=== PATIENT | male | born 1960 | race Caucasian/White ===

== ENCOUNTER 2023-11-19 09:52 | Outpatient (REF) | payer OTHER, SELFPAY ==
--- NOTE | ~2023-11-19 | US_ITS ---
EXAMINATION: US ABDOMEN LIMITED CLINICAL INFORMATION: Cirrhosis and question of ascites. COMPARISON: None available. TECHNIQUE: Real-time imaging of the right upper quadrant abdominal viscera. Today's examination is limited secondary to overlying bowel gas. FINDINGS: PANCREAS: The pancreas is obscured by overlying bowel gas and therefore not evaluated. LIVER: The liver is enlarged. The liver contour is normal. Heterogeneously increased echogenicity of the liver. No focal hepatic lesion. There is no intrahepatic biliary duct dilatation seen. GALLBLADDER: Normal. The gallbladder is physiologically distended without evidence of stones, sludge, polyps, wall thickening or pericholecystic fluid. COMMON BILE DUCT: Normal in caliber measuring 0.4 cm in diameter. Negative sonographic Lehman's sign. RIGHT KIDNEY: Normal. No hydronephrosis. No renal calculi or focal parenchymal lesions. The kidney measures 10.7 cm in maximum dimension. FREE FLUID: None. US/US abdomen limited IMPRESSION: Hepatomegaly with heterogeneously increased echogenicity of the liver. This is a nonspecific finding but most suggestive of hepatic steatosis. Correlation with liver enzymes recommended.
== END 2023-11-19 09:53 | disposition home or self-care (01) ==
LOC: HO.US 09:52
PROVIDERS: PCP Internal Medicine; Visit Provider Internal Medicine
DX: F10.10 Alcohol abuse, uncomplicated (principal)
CPT/HCPCS: 76705

== ENCOUNTER 2024-01-01 12:45 | Outpatient (AMB) | payer OTHER, SELFPAY ==
--- NOTE | 2024-01-01 13:03 | MHC.OFFVIS ---
Intake Visit Reasons: elevated PSA (6.56) Intake Note: New Patient presents for initial visit for Elevated PSA Urology Medications: none Blood Thinner: none Hub Inventory Specialist Required: No Accompanied by: Self / Same As Patient Allergies No Known Allergies Allergy (Verified 01/01/24 22:21) Medication List - Last Reconciled 01/01/24 by AMBER Sheffield losartan 100 mg PO DAILY metoprolol succinate ER 100 mg PO DAILY omeprazole 20 mg PO DAILY thiamine HCl (vitamin B1) 100 mg PO DAILY HPI Comments Details: Chepe is a 63-year-old male patient of Dr. Villatoro. He has a past medical history of heart murmur, hypertension, nicotine dependence, and alcohol dependency. He presents to the office today as a new patient for an elevated PSA and gross hematuria. In discussion with the patient today he reports smoking approximately 1 pack of cigarettes per day for over 40 years. He reports noting episodes of gross hematuria over the last few months. He discusses going many years without medical treatment. He reports having had a new PCP and following up with him recently at which time he had blood work ordered and performed and was noted to have an elevated PSA. In review of patient's chart it appears PSA 10/26 6.6. He reports having JORDAN with PCP and no abnormalities were noted. Discussed at length potential causes for gross hematuria as well as elevated PSA. When asked he does report urinary frequency however does not find this bothersome. He otherwise denies urinary urgency, incontinence, nocturia, dysuria, foul smelling urine, changes to urinary stream, flank pain, fever, and or chills. He is happy with his current voiding parameters. In office urinalysis results reviewed with the patient today microscopic hematuria noted. When asked he does report a family history of prostate cancer. He reports his dad was diagnosed with prostate cancer in his 80s. Discussed reasons for blood in the urine may include but are not limited to kidney stones, cancer in the urinary tract, BPH, kidney stone disease or inflammatory conditions of the urinary tract. Discussed workup to include cystoscopy evaluation. He otherwise offers no other issues or concerns at this time. [facility] Medical History (Updated 01/01/24 @ 22:33 by AMBER Sheffield) Heart murmur High blood pressure Social History (Updated 01/01/24 @ 13:20 by Sky Prieto) Patient Tobacco Use Status: Current everyday Tobacco user Review of Systems Const All systems reviewed & are unremarkable except as noted in HPI and below Physical Exam Const General: cooperative, comfortable, no acute distress, well developed, alert and awake Orientation/consciousness: patient oriented x3 Limitations: no limitations HEENT Head: Yes normal to inspection, Yes normocephalic and Yes atraumatic Ears: hearing grossly normal bilaterally Eyes General: appearance normal, both eyes and all related structures Neck Neck: Yes normal visual inspection and Yes trachea midline Chest Chest palpation & inspection: normal inspection of the chest Resp Effort & Inspection: normal respiratory effort and able to speak in complete sentences Cardio Rate: regular rate GI Inspection: Yes normal to inspection General: Yes no CVA tenderness Back/Spine/Pelvis Back: no CVA tenderness Skin General skin exam: no rashes or lesions noted Neuro General: patient oriented x3 Extrem General: Yes normal to inspection Psych Appearance: grossly normal and well kempt Mental Status: mental status grossly normal Speech and movement: Normal speech and movement present and Clear speech present Affect: normal affect Attitude: cooperative Thought process: Normal thought process present Thought content: Normal thought content present Insight: Fair insight present (Psych) Judgement: Fair judgement present (Psych) Results AMB Urinalysis, Automated UA Leukoctes 0 Radha/uL Last Edit by RCT Logic on 01/01/24 13:22 UA Nitrite Negative Last Edit by RCT Logic on 01/01/24 13:22 UA Urobilinogen 0.2 mg/dL Last Edit by RCT Logic on 01/01/24 13:22 UA Protein 0 mg/dL Last Edit by [employer] on 01/01/24 13:22 UA pH 6.0 Last Edit by [employer] Logic on 01/01/24 13:22 UA Blood 25 Rito/uL Last Edit by RCT Logic on 01/01/24 13:22 UA Specific [place] 1.010 Last Edit by RCT Logic on 01/01/24 13:22 UA Ketone Negative Last Edit by [employer] Logic on 01/01/24 13:22 UA Bilirubin 0 mg/dL Last Edit by RCT [employer] on 01/01/24 13:22 UA Glucose 0 mg/dL Last Edit by [employer] on 01/01/24 13:22 Results Reviewed Results Reviewed: Laboratory Last Values Urine pH (Auto) 6.0 01/01/24 13:21 Specific [place] (Auto) 1.010 01/01/24 13:21 Urine Protein (Auto) 0 mg/dL 01/01/24 13:21 Glucose (UA)(Auto) 0 mg/dL 01/01/24 13:21 Urine Ketones (Auto) Negative 01/01/24 13:21 Urine Blood (Auto) 25 Rito/uL 01/01/24 13:21 Urine Nitrite (Auto) Negative 01/01/24 13:21 Urine Bilirubin (Auto) 0 mg/dL 01/01/24 13:21 Urine Urobilinogen (Auto) 0.2 mg/dL 01/01/24 13:21 Leukocyte Esterase (Auto) 0 Radha/uL 01/01/24 13:21 Assessment & Plan Assessment & Plan (1) Gross hematuria: Code(s): R31.0 - Gross hematuria Category: Medical (2) Elevated PSA: Code(s): R97.20 - Elevated prostate specific antigen [PSA] Category: Medical (3) Nicotine dependence: Code(s): F17.200 - Nicotine dependence, unspecified, uncomplicated Category: Medical Plan In office urinalysis results reviewed with the patient today; as noted above; will send for urine cytology. Discussed at length potential causes of gross hematuria as well as elevated PSA. Discussed, educated, and stressed the importance of limiting/quitting nicotine dependence for overall health and well-being Discussed obtaining CT urogram for further assessment evaluation. BUN and creatinine ordered for imaging Discussed redraw of PSA with no sex the night before, no caffeine morning of, and no heavy lifting 1-2 days prior. Discussed potential for near future prostate biopsy and or MRI of the prostate. Patient currently denies any bothersome urinary issues or concerns. He reports be happy with current voiding parameters. Follow-up in office cystoscopy with imaging and labs to be completed prior; or sooner with any issues, concerns, and or questions. Orders: Orders CT urogram Today R31.0 - Gross hematuria PSA,Total (Free>4and<10) Today R97.20 - Elevated prostate specific antigen [PSA] AMB Urinalysis Automated Today Z13.9 - Encounter for screening, unspecified Urine Cytology Today Z13.9 - Encounter for screening, unspecified Blood Urea Nitrogen Today R31.0 - Gross hematuria Creatinine Today R31.0 - Gross hematuria Patient Instructions: The patient had an opportunity to ask questions regarding the treatment plan. All questions were answered. Physical exam, labs, and imaging were discussed and reviewed in detail. As well as risks, benefits, and discussion of treatment choices. No major barriers to understanding were identified. The patient expressed understanding and agreement with the above treatment plan. The patient was made aware they should contact our office by phone for worsening of their current condition, the appearance of new symptoms, or with any questions or concerns. Compliance is encouraged with any medications and follow up testing that is ordered. It is a privilege to be allowed the opportunity to participate in? your urological care.? Again, if you have any questions or concerns If you have any questions or concerns please do not hesitate to contact me. The office is [phone]. This note is constructed using voice recognition software. While every effort has been made to ensure accuracy shopper marketing manager errors may have been included. Yours sincerely, AMBER Sheffield Coding Level of Care Code New Pt Level 4 (35554) Diagnoses Gross hematuria R31.0 Elevated PSA R97.20 Nicotine dependence F17.200 Time Spent (min) 35
== END 2024-01-01 13:53 | disposition home or self-care (01) ==
PROVIDERS: PCP Internal Medicine; Visit Provider Nurse Practitioner Family
DX: R31.0 Gross hematuria (principal); R97.20 Elevated prostate specific antigen [PSA]; F17.200 Nicotine dependence, unspecified, uncomplicated
CPT/HCPCS: 99204

== ENCOUNTER 2024-01-01 12:45 | Outpatient (REF) | payer OTHER, SELFPAY ==
[2024-01-01 16:27] LABS: Urine Cytology See Pathology rpt
== END 2024-01-01 12:46 | disposition home or self-care (01) ==
LOC: HO.LNP 12:45
PROVIDERS: PCP Internal Medicine; Visit Provider Nurse Practitioner Family
DX: R31.0 Gross hematuria (principal); R97.20 Elevated prostate specific antigen [PSA]; F17.200 Nicotine dependence, unspecified, uncomplicated
CPT/HCPCS: 81003; 88112; 99202

== ENCOUNTER 2024-02-11 13:19 | Outpatient (AMB) | payer OTHER, SELFPAY ==
--- NOTE | 2024-02-11 14:10 | A.OFFVIS_ITS ---
Intake Visit Reasons: cysto/labs(PSA 7.23) Intake Note: Patient is Present for Cystoscopy Urology Med: none Antibiotic Allergy:None Blood Thinner:None URO- G Disposable Cystoscope lot: [id number] exp: 10/03/2026 Allergies No Known Allergies Allergy (Verified 03/30/24 14:24) HPI Comments Details: Chepe is a pleasant male. He is a patient of Dr. Li. He has seen for the following urologic conditions - gross hematuria Here for cystoscopy Normal Discussed elevated PSA Does have urinary urgency Offered medication Currently he is completing alcohol addiction program and would rather avoid medi cations Six-month follow-up PSA Episode of gross hematuria Smoking history 40 year pack per day PSA 10/26 6.6, 01/23 7.3 Family history prostate cancer father late 80 Imaging - abdominal ultrasound hepatic steatosis PFSH Medical History Heart murmur High blood pressure Social History Patient Tobacco Use Status: Current everyday Tobacco user Review of Systems Const Denies chills and Denies fever(s) Card Reports no additional complaints and Denies syncope Resp Denies cough GI Denies abdominal pain and Denies heartburn Reports as per HPI and Denies change in libido Neuro Denies syncope Psych Denies change in libido Endo Denies change in libido Physical Exam Const General: cooperative, healthy appearing, comfortable and no acute distress Orientation/consciousness: patient oriented x3 HEENT Face and sinus: Yes normal facial exam Mouth: moist mucous membranes Neck Neck: Yes normal visual inspection, Yes full ROM and Yes trachea midline Chest Chest palpation & inspection: normal inspection of the chest Resp Effort & Inspection: normal respiratory effort, able to speak in complete sentences and no respiratory distress GI Inspection: Yes normal to inspection Back/Spine/Pelvis Cervical Spine: normal cervical lordosis Thoracic/Lumbar Spine: thoracic and lumbar spine normal to inspection Skin General skin exam: no rashes or lesions noted Neuro General: patient oriented x3, gait normal, tone normal and moves all extremities Extrem General: Yes normal to inspection and Yes capillary refill normal Office Procedures Cystoscopy Consent Discussed risk and benefit or proposed procedure with the patient. Information consent for procedure given to the patient. Discussed technical aspects, risks, benefits and alternatives in full. Addressed all of the patient's questions and concerns regarding the procedure. The patient demonstrated knowledge and understanding. They wish to proceed with this procedure. Preparation The patient was prepped in the usual manner. A rn urgent care was present and in the room. Genitalia was prepped with betadine solution in a sterile manner. Lidocaine Jelly 2% was placed into the urethra and 16Fr flexible Olympus cystoscope was inserted into the meatus after adequate lubrication. Procedure Cystoscopy performed using a disposable Urovue digital 16 Hebrew cystoscope. Meatus circumcised Urethra anterior and posterior urethra normal Prostatic Urethra open Bladder examination with retroflexion of cystoscope Bladder Orifices normal shape and position Bladder Capacity small medium large Trabeculations median Cellule Formation - Diverticulum Formation - Mucosal Erythema - Bladder Tumor - [id number] DISPOSABLE SCOPE URO-G FLEXIBLE SCOPE Procedure code (CPT) selection complete Office Meds lidocaine HCl 2 % mucosal jelly in applicator Performing Provider: Sang Antunez MD [place] [facility] [facility] [place] [facility] Administered by: Sang Antunez MD on 05/10/24 20:46 Dose Route Admin Location Dispensed Lot Number Expiration Date ND Metal Drill Operator 10 mL intra-urethral 10 mL nitrofurantoin monohydrate/macrocrystals 100 mg capsule Performing Provider: Sang Antunez MD Performing [place] [facility] [facility] Administered by: Sang Antunez MD on 05/10/24 20:46 Dose Route Admin Location Dispensed Lot Number Expiration Date NDC Metal Drill Operator 100 mg PO 1 cap naproxen 500 mg tablet Performing Provider: Sang Antunez MD Performing [place] [facility] [place] [facility] Documented (not given) by: Sang Antunez MD on 05/10/24 20:46 Dose Route Admin Location Dispensed Lot Number Expiration Date NDC Metal Drill Operator 500 mg PO tab Results AMB Urinalysis, Automated 2 UA Leukoctes 0 Radha/uL Last Edit by JACOBO Uribe on 02/11/24 14:24 UA Nitrite Negative Last Edit by JACOBO Uribe on 02/11/24 14:24 UA Urobilinogen 0.2 mg/dL Last Edit by JACOBO Uribe on 02/11/24 14:2 4 UA Protein 15 mg/dL Last Edit by JACOBO Uribe on 02/11/24 14:24 UA pH 6.5 Last Edit by JACOBO Uribe on 02/11/24 14:24 UA Blood 10 Rito/uL Last Edit by JACOBO Uribe on 02/11/24 14:24 UA Specific [place] 1.015 Last Edit by Carmenza Powell RMA on 02/11/24 14: 24 UA Ketone Negative Last Edit by YESICA UribeA on 02/11/24 14:24 UA Bilirubin 0 mg/dL Last Edit by YESICA UribeA on 02/11/24 14:24 UA Glucose 0 mg/dL Last Edit by YESICA UribeA on 02/11/24 14:24 Results Reviewed Results Reviewed: Laboratory Last Values Urine pH (Auto) 6.5 02/11/24 14:12 Specific [place] (Auto) 1.015 02/11/24 14:12 Urine Protein (Auto) 15 mg/dL 02/11/24 14:12 Glucose (UA)(Auto) 0 mg/dL 02/11/24 14:12 Urine Ketones (Auto) Negative 02/11/24 14:12 Urine Blood (Auto) 10 Rito/uL 02/11/24 14:12 Urine Nitrite (Auto) Negative 02/11/24 14:12 Urine Bilirubin (Auto) 0 mg/dL 02/11/24 14:12 Urine Urobilinogen (Auto) 0.2 mg/dL 02/11/24 14:12 Leukocyte Esterase (Auto) 0 Radha/uL 02/11/24 14:12 Assessment & Plan Assessment & Plan (1) Nephrolithiasis: Code(s): N20.0 - Calculus of kidney Category: Medical Plan 6m f/u Orders: Orders AMB Cystoscopy 02/11/24 R31.0 - Gross hematuria AMB Urinalysis Automated 02/11/24 Z13.9 - Encounter for screening, unspecified Prostate Specific Antigen 6 Months R97.20 - Elevated prostate specific antigen [PSA] Medications: New lidocaine HCl 2% 10 mL intra-urethral ONCE 10 mL 0RF R31.0 - Gross hematuria nitrofurantoin monohyd/m-cryst 100 mg 100 mg PO ONCE 1 cap 0RF R31.0 - Gross hematuria naproxen 500 mg PO ONCE 1 tab 0RF R31.0 - Gross hematuria Patient Instructions: Imaging studies, laboratory and physical exam results were discussed and reviewed in detail. No major barriers to patient understanding were identified. An opportunity to ask questions regarding the treatment plan was provided. All questions were answered. The patient expressed understanding and agreement with the above treatment plan. The patient is aware they should contact our office by phone for worsening of their current condition or the appearance of new urologic symptoms. Compliance i s encouraged with any medications and followup testing that is ordered. It is a privilege to participate in the urologic care of your patient. If you have any questions or concerns regarding treatment for the above conditions, or other urologic issues, please do not hesitate to contact me. The office telephone contact is [phone]. This note is constructed using voice recognition software. While every effort has been made to ensure accuracy floral arranger errors may have been included. Yours sincerely, Dr Sang Antunez MD, [facility] - Urology Providers of Expert, Compassionate Care for the Genitourinary System Coding Level of Care Code Est Pt Level 3 (70545) Diagnoses Nephrolithiasis N20.0 CPT Codes Cystoscopy - CPT: [id number] ([id number])
== END 2024-02-11 15:01 | disposition home or self-care (01) ==
PROVIDERS: PCP Internal Medicine; Visit Provider Urology
DX: R31.0 Gross hematuria (principal); N20.0 Calculus of kidney
CPT/HCPCS: 52000; 99213

== ENCOUNTER → 2024-02-11 13:19 | Outpatient (BNVA) | payer OTHER, SELFPAY | PROVIDERS: PCP Internal Medicine; Visit Provider Urology | DX: R31.0 Gross hematuria (principal) | CPT/HCPCS: 52000; 81003; 99212 ==

== ENCOUNTER 2024-03-18 15:09 | Outpatient (REF) | payer OTHER, SELFPAY ==
--- NOTE | ~2024-03-18 | CT_ITS ---
EXAMINATION: CT ABDOMEN AND PELVIS WITHOUT AND WITH CONTRAST CLINICAL INFORMATION: Gross hematuria. COMPARISON: Right upper quadrant ultrasound 11/19/2023 TECHNIQUE: Noncontrast CT of the abdomen and pelvis is performed followed by split bolus contrast-enhanced images using 85 mL Omnipaque 350 contrast.? Postcontrast imaging is performed during the combined nephrogram and excretion phase. Sagittal and coronal reformatted images were obtained on the technologist's workstation for both the precontrast and postcontrast phases. This CT examination was performed using dose optimization techniques as appropriate, variously including the following: *Automated exposure control *Adjustment of mA and/or kV according to patient size (this includes techniques or standardized protocols for targeted exams where dose is matched to indication/reason for exam; i.e. extremities or head) *Use of iterative reconstruction technique DLP: 1125 mGy-cm FINDINGS: LUNG BASES: No pleural or pericardial effusion. LIVER, GALLBLADDER, AND BILIARY TREE: The liver is enlarged and decreased in attenuation. No focal hepatic lesion or biliary ductal dilatation is present. The gallbladder is unremarkable with no evidence of radiopaque gallstones, gallbladder wall thickening, or obvious pericholecystic inflammatory changes. PANCREAS: Possible pancreatic parenchymal calcifications. No ductal dilatation. SPLEEN: Not enlarged. ADRENAL GLANDS: Right adrenal nodule measures 1.9 x 1.4 cm. Left adrenal nodule measures 1.8 x 1.6 cm. KIDNEYS AND URETERS: The kidneys are symmetric in size and enhancement. 7 mm cluster of nonobstructing calculi lower pole right kidney. Few nonobstructing calculi lower pole left kidney with the largest measuring 6 mm. 4 mm nonobstructing calculus upper pole left kidney. Nonspecific perinephric stranding. No ureteral calculus. Bilateral collecting systems and opacified portions of the ureters are nondilated and without obvious filling defects. BLADDER: Underdistended Partially fills with excreted contrast. No intraluminal filling defects. No bladder calculus. GASTROINTESTINAL TRACT: Small and large bowel loops are of normal caliber. Extensive diverticular disease of the sigmoid colon. No small bowel obstruction. Appendix is within normal limits. ABDOMINAL WALL: Bilateral fat-containing inguinal hernias. LYMPH NODES: No bulky lymphadenopathy. VASCULAR: Normal caliber abdominal aorta. Retroaortic left renal vein. PELVIC VISCERA: Mild enlargement of the prostate gland. OSSEUS STRUCTURES: No destructive bone lesions. CT/CT urogram IMPRESSION: Bilateral nonobstructing renal calculi. No hydronephrosis. Bilateral adrenal nodules. Recommend 1-year followup adrenal protocol CT. Also, if clinically indicated, consider concurrent laboratory evaluation for possible pheochromocytoma. Hepatic steatosis. Sigmoid diverticulosis.
[2024-03-18] MEDS: iohexoL 350 MG/ML 75 ML INFUS..BTL 85 ML IV (16:37)
== END 2024-03-18 15:10 | disposition home or self-care (01) ==
LOC: HO.CT 15:09
PROVIDERS: PCP Internal Medicine; Visit Provider Nurse Practitioner Family
DX: R31.0 Gross hematuria (principal)
CPT/HCPCS: 74178; Q9967

== ENCOUNTER 2024-03-30 13:04 | Outpatient (AMB) | payer OTHER, SELFPAY ==
--- NOTE | 2024-03-30 13:32 | MHC.OFFVIS ---
Intake Visit Reasons: CT results Intake Note: Patient presents today for follow up visit on: Elevated PSA , CT Scan and PSA results CT scan completed: 03/18/24 PSA: 4 Urology Medications: none Blood Thinner: none Dean Of Education Required: No Accompanied by: Self / Same As Patient Allergies No Known Allergies Allergy (Verified 03/30/24 14:24) Medication List - Last Reconciled 03/30/24 by ADIS Sheffield-ROBERTO losartan 100 mg PO DAILY metoprolol succinate ER 100 mg PO DAILY omeprazole 20 mg PO DAILY thiamine HCl (vitamin B1) 100 mg PO DAILY HPI Comments Details: Chepe is a 63-year-old male patient of Dr. Villatoro. He has a past medical history of heart murmur, hypertension, nicotine dependence, and alcohol dependency. He presents to the office today as a new patient for an elevated PSA and gross hematuria. In discussion with the patient today he reports to be doing and feeling well. He denies any episodes of hematuria since his last office visit here approximately 1 month ago. Of note, patient underwent an office cystoscopy with Dr. Antunez during last office visit at which noted no abnormal findings. He continues to work on his alcohol dependence. He reports continuing is alcohol addiction program. Recent CT results reviewed with the patient today. Bilateral kidneys with nonobstructing renal calculi. The bladder is underdistended partially fills with excreted contrast. No intraluminal filling defects. No bladder calculus noted. He does continue to report a 1 pack per day smoking history of over 40 years. Recent PSA results reviewed with the patient today. PSAs are as follows: 10/26 6.6, 01/23 7.2, 03/25 4.0 Discussed at length potential causes for gross hematuria as well as elevated PSA. When asked he does report urinary frequency however does not find this bothersome. He otherwise denies urinary urgency, incontinence, nocturia, dysuria, foul smelling urine, changes to urinary stream, flank pain, fever, and or chills. He is happy with his current voiding parameters. When asked he does report a family history of prostate cancer. He reports his dad was diagnosed with prostate cancer in his 80s. Urine cytology 01/23 Negative for high-grade urothelial carcinoma. He otherwise offers no other issues or concerns at this time. [facility] Medical History Heart murmur High blood pressure Social History Patient Tobacco Use Status: Current everyday Tobacco user Review of Systems Const All systems reviewed & are unremarkable except as noted in HPI and below Physical Exam Const General: cooperative, comfortable, no acute distress, well developed, alert and awake Nutritional Appearance: overweight Orientation/consciousness: patient oriented x3 Limitations: no limitations HEENT Head: Yes normal to inspection, Yes normocephalic and Yes atraumatic Ears: hearing grossly normal bilaterally Eyes General: appearance normal, both eyes and all related structures Neck Neck: Yes normal visual inspection and Yes trachea midline Chest Chest palpation & inspection: normal inspection of the chest Resp Effort & Inspection: normal respiratory effort and able to speak in complete sentences Cardio Rate: regular rate GI Inspection: Yes normal to inspection General: Yes no CVA tenderness Back/Spine/Pelvis Back: no CVA tenderness Skin General skin exam: no rashes or lesions noted Neuro General: patient oriented x3 Extrem General: Yes normal to inspection Psych Appearance: grossly normal and well kempt Mental Status: mental status grossly normal Speech and movement: Normal speech and movement present and Clear speech present Affect: normal affect Attitude: cooperative Thought process: Normal thought process present Thought content: Normal thought content present Insight: Fair insight present (Psych) Judgement: Fair judgement present (Psych) Results Reviewed Results Reviewed: Procedure(s): CT urogram EXAMINATION: CT ABDOMEN AND PELVIS WITHOUT AND WITH CONTRAST FINDINGS: LUNG BASES: No pleural or pericardial effusion. LIVER, GALLBLADDER, AND BILIARY TREE: The liver is enlarged and decreased in attenuation. No focal hepatic lesion or biliary ductal dilatation is present. The gallbladder is unremarkable with no evidence of radiopaque gallstones, gallbladder wall thickening, or obvious pericholecystic inflammatory changes. PANCREAS: Possible pancreatic parenchymal calcifications. No ductal dilatation. SPLEEN: Not enlarged. ADRENAL GLANDS: Right adrenal nodule measures 1.9 x 1.4 cm. Left adrenal nodule measures 1.8 x 1.6 cm. KIDNEYS AND URETERS: The kidneys are symmetric in size and enhancement. 7 mm cluster of nonobstructing calculi lower pole right kidney. Few nonobstructing calculi lower pole left kidney with the largest measuring 6 mm. 4 mm nonobstructing calculus upper pole left kidney. Nonspecific perinephric stranding. No ureteral calculus. Bilateral collecting systems and opacified portions of the ureters are nondilated and without obvious filling defects. BLADDER: Underdistended Partially fills with excreted contrast. No intraluminal filling defects. No bladder calculus. GASTROINTESTINAL TRACT: Small and large bowel loops are of normal caliber. Extensive diverticular disease of the sigmoid colon. No small bowel obstruction. Appendix is within normal limits. ABDOMINAL WALL: Bilateral fat-containing inguinal hernias. LYMPH NODES: No bulky lymphadenopathy. VASCULAR: Normal caliber abdominal aorta. Retroaortic left renal vein. PELVIC VISCERA: Mild enlargement of the prostate gland. OSSEUS STRUCTURES: No destructive bone lesions. CT/CT urogram IMPRESSION: Bilateral nonobstructing renal calculi. No hydronephrosis. Bilateral adrenal nodules. Recommend 1-year followup adrenal protocol CT. Also, if clinically indicated, consider concurrent laboratory evaluation for possible pheochromocytoma. Hepatic steatosis. Sigmoid diverticulosis. Assessment & Plan Assessment & Plan (1) Gross hematuria: Code(s): R31.0 - Gross hematuria Category: Medical (2) Nephrolithiasis: Code(s): N20.0 - Calculus of kidney Category: Medical (3) Nicotine dependence: Code(s): F17.200 - Nicotine dependence, unspecified, uncomplicated Category: Medical (4) Elevated PSA: Code(s): R97.20 - Elevated prostate specific antigen [PSA] Category: Medical Plan Unable to obtain urine for urinalysis as patient unable to void. Recent CT results reviewed with the patient today; as noted above. Discussed surgical intervention versus surveillance monitoring of nephrolithiasis; risks and benefits of these interventions were discussed. Recent PSA results reviewed with the patient today as noted above; trending down Patient currently denies any bothersome urinary issues or concerns He is happy with his current voiding parameters. Discussed at length potential causes of gross hematuria patient had been experiencing, elevated PSA, and nephrolithiasis. Discussed, educated, and stressed the importance of adequate hydration in relation to nephrolithiasis as well as overall health and well-being. Discussed adding 1 oz of lemon juice to water daily. Will obtain retroperitoneal ultrasound in 4 months. Continue follow-up with [facility] as planned Discussed, educated, and stressed the importance of limiting alcohol dependence as well as nicotine dependence. Will obtain redraw of PSA in 4 months. Follow-up in 4 months with imaging and labs to be completed prior; or sooner with any issues, concerns, and or questions. Orders: Orders PSA,Total (Free>4and<10) 4 Months R97.20 - Elevated prostate specific antigen [PSA] US retroperitoneal comp 4 Months N20.0 - Calculus of kidney, R31.0 - Gross hematuria Patient Instructions: The patient had an opportunity to ask questions regarding the treatment plan. All questions were answered. Physical exam, labs, and imaging were discussed and reviewed in detail. As well as risks, benefits, and discussion of treatment choices. No major barriers to understanding were identified. The patient expressed understanding and agreement with the above treatment plan. The patient was made aware they should contact our office by phone for worsening of their current condition, the appearance of new symptoms, or with any questions or concerns. Compliance is encouraged with any medications and follow up testing that is ordered. It is a privilege to be allowed the opportunity to participate in? your urological care.? Again, if you have any questions or concerns If you have any questions or concerns please do not hesitate to contact me. The office is [phone]. This note is constructed using voice recognition software. While every effort has been made to ensure accuracy metal mold dresser errors may have been included. Yours sincerely, AMBER Sheffield Coding Level of Care Code Est Pt Level 3 (00007) Complex EM visit Add On G2211 Diagnoses Gross hematuria R31.0 Nephrolithiasis N20.0 Nicotine dependence F17.200 Elevated PSA R97.20
== END 2024-03-30 14:16 | disposition home or self-care (01) ==
PROVIDERS: PCP Internal Medicine; Visit Provider Nurse Practitioner Family
DX: R31.0 Gross hematuria (principal); N20.0 Calculus of kidney; F17.200 Nicotine dependence, unspecified, uncomplicated; R97.20 Elevated prostate specific antigen [PSA]
CPT/HCPCS: 99213; G2211

== ENCOUNTER → 2024-03-30 13:04 | Outpatient (BNVA) | payer OTHER, SELFPAY | PROVIDERS: PCP Internal Medicine; Visit Provider Nurse Practitioner Family | DX: R97.20 Elevated prostate specific antigen [PSA] (principal); R31.0 Gross hematuria; N20.0 Calculus of kidney; I10 Essential (primary) hypertension; F17.200 Nicotine dependence, unspecified, uncomplicated | CPT/HCPCS: 99212 ==

== ENCOUNTER 2024-07-21 14:14 | Outpatient (REF) | payer OTHER, SELFPAY ==
--- NOTE | ~2024-07-21 | US_ITS ---
EXAMINATION: US RETROPERITONEAL COMPLETE (RENAL) CLINICAL INFORMATION: Gross hematuria. COMPARISON: CT urogram 03/18/2024, ultrasound abdomen 11/19/2023 TECHNIQUE: Real-time imaging of the kidneys and bladder. FINDINGS: RIGHT KIDNEY: 10.9 x 5.4 x 5.5 cm (SAG x AP x TRV). The kidney is normal in size, contour, and echogenicity. Renal cortical thickness is normal. No calculi or focal parenchymal lesions. No hydronephrosis. LEFT KIDNEY: 11.9 x 6.3 x 5.0 cm (SAG x AP x TRV). The kidney is normal in size, contour, and echogenicity. Renal cortical thickness is normal. No focal parenchymal lesions. In the upper pole of the left kidney, there is a echogenic focus measuring 6 mm in size. This does not shadow and does not have twinkle artifact. Although this Does not have typical characteristics of a stone, on the prior CT scan, a stone was present in the exact same location. No hydronephrosis. BLADDER: Well distended and normal. Bilateral ureteral jets are demonstrated. Prevoid bladder volume is 405 mL. Postvoid bladder volume is 51 mL. Prostate: Prostate upper limits of normal at 29 mL. US/US retroperitoneal comp IMPRESSION: 6 mm echogenic focus upper pole left kidney consistent with a nonobstructing calculus as seen on the prior CT. Borderline prostate with 51 mL PVR Electronically signed by: Brijesh Gr MD 07/21/2024 10:[address] [facility]
== END 2024-07-21 14:15 | disposition home or self-care (01) ==
LOC: HO.US 14:14
PROVIDERS: PCP Internal Medicine; Visit Provider Nurse Practitioner Family
DX: R31.0 Gross hematuria (principal); N20.0 Calculus of kidney
CPT/HCPCS: 76770

== ENCOUNTER 2024-08-17 14:26 | Outpatient (AMB) | payer OTHER, SELFPAY ==
--- NOTE | 2024-08-17 14:25 | A.OFFVIS_ITS ---
Intake Visit Reasons: 6M/PSA Intake Note: Patient presents today for tele visit follow up on: Elevated PSA , ultrasound and PSA results Imaging completed: 07/21/24 PSA: 4.2 Urology Medications: Vitamin B6 Blood Thinner: none Nutrition Helper Required: No Nutrition Helper Services: Nutrition Helper Offered & Declined Accompanied by: Self / Same As Patient Allergies No Known Allergies Allergy (Verified 08/17/24 15:09) Medication List - Last Reconciled 08/17/24 by AMBER Sheffield atorvastatin 20 mg PO DAILY hydroxyzine HCl 25 mg PO BEDTIME losartan 100 mg PO DAILY metoprolol succinate ER 100 mg PO DAILY omeprazole 20 mg PO DAILY pyridoxine (vitamin B6) 100 mg PO DAILY 90 days thiamine HCl (vitamin B1) 100 mg PO DAILY HPI Comments Details: Chepe is a 63-year-old male patient of Dr. Villatoro. He has a past medical history of heart murmur, hypertension, nicotine dependence, and alcohol dependency. He is being followed up on today via video telehealth for his elevated PSA and gross hematuria. In discussion with the patient today he reports to be struggling with his alcohol dependence. He reports following up with [facility] rehab however the program is only 7 days long and feels he needs something longer. Call to PCP office as well as [facility] as patient is looking to undergo further treatment options. In regards to patient's urological health we discussed recent retroperitoneal ultrasound results 07/26 bilateral kidneys are normal in size, contour, and echogenicity. Right kidney with no lesions, calculi, and or hydronephrosis. Left kidney with 6 mm echogenic focus consistent with nonobstructing calculus seen on prior CT. The bladder is well distended and normal. Bladder ureteral jets are demonstrated. Pre void bladder volume is a proximally 400 mL. Postvoid bladder volume is 50 mL. The prostate measures a proximally 30 mL. Recent PSA results reviewed with the patient today as noted and trended below... 10/26 6.6, 524 7.2, 03/25 4.0, 07/26 4.2 Patient with a previous history of gross hematuria and has underwent further workup with CT urogram 03/25 that noted bilateral kidneys with nonobstructing renal calculi. The bladder is underdistended partially fills with excreted contrast. No intraluminal filling defects. No bladder calculus noted. He also underwent in office cystoscopy with Dr. Antunez 02/23 which noted no abnormal findings. He continues to work on his alcohol dependence. He does continue to report a one pack per day smoking history of over 40 years. He denies any further episodes of gross hematuria and or bothersome urinary issues or concerns. He denies urinary urgency, incontinence, nocturia, dysuria, foul smelling urine, changes to urinary stream, flank pain, fever, and or chills. He is happy with his current voiding parameters. When asked he does report a family history of prostate cancer. He reports his dad was diagnosed with prostate cancer in his 80s. Urine cytology 01/23 Negative for high-grade urothelial carcinoma. He otherwise offers no other issues or concerns at this time. [facility] Medical History Heart murmur High blood pressure Social History Patient Tobacco Use Status: Current everyday Tobacco user Review of Systems Const All systems reviewed & are unremarkable except as noted in HPI and below Physical Exam Const General: cooperative, healthy appearing, comfortable, no acute distress, well developed, alert and awake Orientation/consciousness: oriented to person Resp Effort & Inspection: normal respiratory effort and able to speak in complete sentences Neuro General: oriented to person Psych Appearance: well kempt Mental Status: mental status grossly normal Speech and movement: Clear speech present Affect: normal affect Attitude: cooperative Thought content: Normal thought content present Insight: Fair insight present (Psych) Judgement: Fair judgement present (Psych) Telehealth Telehealth Telehealth Platform: [facility] Location of provider rendering services: practice address Location of patient: address on file Patient Identification confirmed using: Name, : Yes Telehealth method: video Patient verbally consented to treatment: Yes Patient verbally consented to billing insurance company: Yes Patient informed of any privacy concerns related to visit: Yes Minutes spent on Phone/Video with Pt.: 35 Results Reviewed Results Reviewed: Date of Service: 07/21/24 EXAMINATION: US RETROPERITONEAL COMPLETE (RENAL) FINDINGS: RIGHT KIDNEY: 10.9 x 5.4 x 5.5 cm (SAG x AP x TRV). The kidney is normal in size, contour, and echogenicity. Renal cortical thickness is normal. No calculi or focal parenchymal lesions. No hydronephrosis. LEFT KIDNEY: 11.9 x 6.3 x 5.0 cm (SAG x AP x TRV). The kidney is normal in size, contour, and echogenicity. Renal cortical thickness is normal. No focal parenchymal lesions. In the upper pole of the left kidney, there is a echogenic focus measuring 6 mm in size. This does not shadow and does not have twinkle artifact. Although this Does not have typical characteristics of a stone, on the prior CT scan, a stone was present in the exact same location. No hydronephrosis. BLADDER: Well distended and normal. Bilateral ureteral jets are demonstrated. Prevoid bladder volume is 405 mL. Postvoid bladder volume is 51 mL. Prostate: Prostate upper limits of normal at 29 mL. IMPRESSION: 6 mm echogenic focus upper pole left kidney consistent with a nonobstructing calculus as seen on the prior CT. Borderline prostate with 51 mL PVR Assessment & Plan Assessment & Plan (1) Elevated PSA: Code(s): R97.20 - Elevated prostate specific antigen [PSA] Category: Medical (2) Nephrolithiasis: Code(s): N20.0 - Calculus of kidney Category: Medical Plan Recent PSA results reviewed with the patient today; as noted above. Recent retroperitoneal ultrasound results reviewed with the patient today; as noted above. Call to PCP as well as [facility] to further assess further treatment options regarding alcohol dependence. Patient currently denies any bothersome urinary issues. Reports be happy with current voiding parameters. We discussed at length potential causes of elevated PSA as well as further treatment options and risks and benefits of these treatment options. Will continue with close surveillance monitoring. Will obtain PSA in 4 months. Continue vitamin B6 as discussed and prescribed; refill provided. Follow-up in 4 months with PSA to be completed prior; or sooner with any issues, concerns, and or questions. Orders: Orders Prostate Specific Antigen 4 Months R97.20 - Elevated prostate specific antigen [PSA] Medications: Refilled pyridoxine (vitamin B6) 100 mg PO DAILY 90 tabs 3RF 90 days Patient Instructions: The patient had an opportunity to ask questions regarding the treatment plan. All questions were answered. Physical exam, labs, and imaging were discussed and reviewed in detail. As well as risks, benefits, and discussion of treatment choices. No major barriers to understanding were identified. The patient expressed understanding and agreement with the above treatment plan. The patient was made aware they should contact our office by phone for worsening of their current condition, the appearance of new symptoms, or with any questions or concerns. Compliance is encouraged with any medications and follow up testing that is ordered. It is a privilege to be allowed the opportunity to participate in? your urological care.? Again, if you have any questions or concerns If you have any questions or concerns please do not hesitate to contact me. The office is [phone]. This note is constructed using voice recognition software. While every effort has been made to ensure accuracy combination presser errors may have been included. Yours sincerely, AMBER Sheffield Coding Level of Care Code Tele Est Pt Level 4 (57090) Diagnoses Elevated PSA R97.20 Nephrolithiasis N20.0 Time Spent (min) 35
--- OUTSIDE RECORDS SUMMARY | 2024-08-17 14:28 | XMS_ITS | Encounter Summary ---
Author Name [facility] [place] [facility] [place] Address [address] [place] [id number] Support Name Relationship Address Phone DANUTA CASTELAN Emergency Contact Unknown Selected Encounter This section includes the information on record at [place] for the Encounter. Date/Time Encounter Type Encounter Description Reason Provider Source Aug 20, 2023 01:41 PM COMMUNITY/WORK REINTEGRATION HOMELESS [place] COM EMP SVC INDIV ICD-10-CM Z56.0 Unemployment, unspecified CANDAGE,[facility] Encounter Template Text not used by [place] Assessments - Encounter Diagnoses This section includes the primary and secondary diagnoses documented for the Encounter. Date/Time Primary/Secondary Diagnosis Diagnosis Name Provider Source Aug 20, 2023 01:44 PM PRIMARY Unemployment, unspecified CANDAGE,GI [facility] Social History: Smoking Status (Most current) and Tobacco Use (All prior to encounter date) This section includes the most current, and the historical, smoking and tobacco- related health factors from the [place] facility where the Encounter took place. Current Smoking Status This section includes the most current smoking, or tobacco-related health factor, from the [place] facility where the Encounter took place. Date/Time Current Smoking Status Comment Yadira ity Oct 06, 2020 11:45 AM VA-TOBACCO USER EVERY DAY [facility] Tobacco Use History This section includes a history of the smoking, or tobacco-related health factors, that were collected on or before the date of the Encounter. The data comes from the [place] facility where the Encounter took place. Date/Time Smoking Status/Tobacco Use Comment F acility Oct 06, 2020 11:45 AM VA-TOBACCO USE ADVICE [facility] Oct 06, 2020 11:45 AM VA-TOBACCO USE RISK COMPLIANCE MANAGER NO [facility] [place] [facility] Oct 06, 2020 11:45 AM VA-TOBACCO USE MED NO [facility] [place] [facility] Oct 06, 2020 11:45 AM VA-TOBACCO USE WI 30 MIN OF WAKEUP [place] [facility] [place] [facility] Oct 06, 2020 11:45 AM VA-TOBACCO USER EVERY DAY [facility] Encounter Notes: All associated encounter notes This section contains the clinical notes associated to the Encounter. 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 Norton stated he is not in need of help, though was interested in CWT. [facility] explained because Norton does not qualify for [place] [facility], he is not eligible for CWT. [facility] again offered assistance, but declined. [facility]EC stated if he finds he would like help in the future he should feel free to reach out to [facility] directly. /monica/ GI WHITT SKEIN YARN DYER HELPER Signed: 08/20/2023 13:44 Receipt Acknowledged By: 08/20/2023 14:26 /monica/ ARAMIS ROLON [facility] Saw Operator 08/21/2023 13:35 /monica/ GI HOUSER [place] [facility]
--- OUTSIDE RECORDS SUMMARY | 2024-08-17 14:28 | XMS_ITS | Encounter Summary ---
Author Name Department of [facility] [place] [facility] [place] Organization [place] Address [address] [place] [id number] Support Name Relationship Address Phone DANUTA CASTELAN Emergency Contact Unknown Selected Encounter This section includes the information on record at [place] for the Encounter. Date/Time Encounter Type Encounter Description Reason Pro vider Source Oct 02, 2023 11:33 AM Outpatient Encounter TELEPHONE [facility] IHE Encounter Template Text not used by VA Social History: Smoking Status (Most current) and Tobacco Use (All prior to encounter date) This section includes the most current, and the historical, smoking and tobacco- related health factors from the [place] facility where the Encounter took place. Current Smoking Status This section includes the most current smoking, or tobacco-related health factor, from the [place] facility where the Encounter took place. Date/Time Current Smoking Status Comment Yadira stanton Oct 06, 2020 11:45 AM VA-TOBACCO USER EVERY DAY [place] [facility] [place] [facility] Tobacco Use History This section includes a history of the smoking, or tobacco-related health factors, that were collected on or before the date of the Encounter. The data comes from the [place] facility where the Encounter took place. Date/Time Smoking Status/Tobacco Use Comment F acility Oct 06, 2020 11:45 AM VA-TOBACCO USE ADVICE [facility] [place] [facility] Oct 06, 2020 11:45 AM VA-TOBACCO USE [facility] NO [facility] [place] [facility] Oct 06, 2020 11:45 AM VA-TOBACCO USE MED NO [facility] [place] [facility] Oct 06, 2020 11:45 AM VA-TOBACCO USE WI 30 MIN OF WAKEUP [facility] [place] [facility] Oct 06, 2020 11:45 AM VA-TOBACCO USER EVERY DAY DE [facility] [place] [facility] Encounter Notes: All associated encounter notes This section contains the clinical notes associated to the Encounter. Date/Time Encounter Note(s) Provider Source Oct 02, 2023 11:33 AM HOMELESS PROGRAM TELEPHONE ENCOUNTER NOTE: LOCAL TITLE: [id number] CONTACT STANDARD TITLE: HOMELESS PROGRAM TELEPHONE ENCOUNTER NOTE DATE OF NOTE: OCT 02, 2023@11:33 ENTRY DATE: OCT 02, 2023@11:34:05 AUTHOR: LISA LAND COSIGNER: ALMA MATSON URGENCY: STATUS: COMPLETED CLICK HERE TO BEGIN Attempted telephone contact to [place] (CHECK ONE) Left a voicemail asking [place] to return call TW call the Vet to f/u and confirm tomorrow transport, no answer and TW left VM. TW will continue efforts to F/U *This case is supervised by Alma Matson [facility]. Diagnosis, treatment plan, and response to care are reviewed in standard 1-hour, or more, weekly individual supervision meeting. This loan supervisor has read and discussed the case with the supervisee and this loan supervisor concurs with what is written in the progress note. /monica/ ARAMIS GARCES Independent Marketing Consultant Signed: 10/02/2023 11:35 /es/ ALMA GARCES Mens Locker Room Attendant Cosigned: 10/03/2023 13:11 ARAMIS LNAD [facility] [place] [facility]
--- OUTSIDE RECORDS SUMMARY | 2024-08-17 14:28 | XMS_ITS | Encounter Summary ---
Author Name Department of [place] Organization Department of [place] Address [address] [place] [id number] Support Name Relationship Address Phone DANUTA CASTELAN Emergency Contact Unknown Selected Encounter This section includes the information on record at [place] for the Encounter. Date/Time Encounter Type Encounter Description Reason Provider Source Sep 10, 2023 01:30 PM CASE MANAGEMENT HUD/VASH INDIV ICD-10-CM Z59.89 Other problems related to housing and economic circumstances LISA LAND [facility] Encounter Template Text not used by [place] Assessments - Encounter Diagnoses This section includes the primary and secondary diagnoses documented for the Encounter. Date/Time Primary/Secondary Diagnosis Diagnosis Name Provider Source Sep 18, 2023 05:02 PM PRIMARY Other problems related to housing and economic circumstances LISA LAND [facility] Social History: Smoking Status (Most current) and [...] took place. Date/Time Current Smoking Status Comment Facil ity Oct 06, 2020 11:45 AM VA-TOBACCO USER EVERY DAY [facility] Tobacco Use History This section includes a history of the smoking, or tobacco-related health factors, that were collected on or before the date of the Encounter. The data comes from the [place] facility where the Encounter took place. Date/Time Smoking Status/Tobacco Use Comment F acility Oct 06, 2020 11:45 AM VA-TOBACCO USE ADVICE [facility] Oct 06, 2020 11:45 AM VA-TOBACCO USE JAVA MANAGER NO [place] [facility] [facility] Oct 06, 2020 11:45 AM VA-TOBACCO USE MED NO [facility] Oct 06, 2020 11:45 AM VA-TOBACCO USE WI 30 MIN OF WAKEUP [facility] Oct 06, 2020 11:45 AM VA-TOBACCO USER EVERY [facility] Encounter Notes: All associated encounter notes This section contains the clinical notes associated to the Encounter. Date/Time Encounter Note(s) Provider Source Sep 10, 2023 01:30 PM HOMELESS PROGRAM N OTE: LOCAL TITLE: [facility] PROGRESS NOTE STANDARD TITLE: HOMELESS PROGRAM NOTE DATE OF NOTE: SEP 10, 2023@13:30 ENTRY DATE: SEP 18, 2023@16:45:42 AUTHOR: LISA LAND COSIGNER: ALMA MATSON URGENCY: STATUS: COMPLETED Location of visit: Home visit Case Management Stage: Maintenance Length of contact: 60 minutes Diagnosis addressed: Other problems related to housing and economic circumstances (ICD-10-CM Z59.89) Description of contact: TW met vet on the lobby, Vet highlight the complex intercom, and a noise the intercom is making. the vet also signal the elevator, that is out of service. Vet reported those things are part of what going on. Vet reported issues with noise from the elevator and sleep deprivation . Vet reported he call the police, he reach out the landlord multiple times over a timeframe of 10 days. Vet reported he dismantle the elevator panel. Vet reported he was overwhelmed by the noise. Vet reported police and landlord show to his door. Vet reported they talked to him. Vet reported he was not arrested. Vet provided a summons document for 09/24/2023 830 am. Vet reported [facility]. He also reach legal counsel. Vet reported they can't help until he received an eviction notice. Vet also reported he went to [facility], he call 911 reporting suicide ideation. Hospital d/c him with crisis follow up by [facility]. Vet reported they offer him services and call him for a few days as a follow up. Alcon reported he is drinking alcohol again after being sober for a while. Alcon reported to have a safety plan and support for his alcohol use. He reported his brother and a AA sponsor are hands on supporting him. TW conducted a CSSR with alcon, result is negative. Visit end with no concerns. Mental status: Anxious, O3X, mood Wnl, intermittent eye contact, cooperative and receptive. Fast speech, appearance Wnl. No S/I, H/I reported. Primary goal: Obtain and maintain housing Objectives addressed: sustain housing PLAN/Next steps: attend court day, follow up as needed with the housing needs *This case is supervised by Alma Matson DIRECTOR OF MARKETING ANALYTICS. Diagnosis, treatment plan, and response to care are reviewed in standard 1-hour, or more, weekly individual supervision meeting. This supervisor fish hatchery has read and discussed the case with the supervisee and this supervisor fish hatchery concurs with what is written in the progress note. Suicide Screen: C-SSRS Screening [place]-Suicide Severity Rating Scale (C-SSRS Screener) 1. Over the past month, have you wished you were or wished you could go to sleep and not wake up? No 2. Over the past month, have you had any actual thoughts of killing yourself? No 3. Over the past month, have you been thinking about how you might do this? Response not required due to responses to other questions. 4. Over the past month, have you had these thoughts and had some intention of acting on them? Response not required due to responses to other questions. 5. Over the past month, have you started to work out or worked out the details of how to kill yourself? Response not required due to responses to other questions. 6. If yes, at any time in the past month did you intend to carry out this plan? Response not required due to responses to other questions. 7. In your lifetime, have you ever done anything, started to do anything, or prepared to do anything to end your life (for example, collected pills, obtained a gun, gave away valuables, went to the roof but didn't jump)? No 8. If YES, was this within the past 3 months? Response not required due to responses to other questions. /monica/ ARAMIS GARCES Mud Temperer Signed: 09/18/2023 17:22 /monica/ ALMA CAMACHO Chainstitch Felled Seam Operator Cosigned: 09/19/2023 07:40 Receipt Acknowledged By: 09/19/2023 13:54 /monica/ BRIELLE SANCHEZ [facility] Suicide Warehouse Receiving Clerk ARAMIS LAND [facility]
--- OUTSIDE RECORDS SUMMARY | 2024-08-17 14:28 | XMS_ITS | Encounter Summary ---
Author Name [facility] [place] Address [address] [place] [id number] Support Name Relationship Address Phone DANUTA CASTELAN Emergency Contact Unknown Selected Encounter This section includes the information on record at [place] for the Encounter. Date/Time Encounter Type Encounter Description Reason Provider Source Sep 26, 2023 04:30 PM HC PRO PHONE CALL 11-20 MIN TELEPHONE HCMI ICD-10-CM Z59.89 Other problems related to housing and economic circumstances LISA LAND [facility] Encounter Template Text not used by [place] Assessments - Encounter Diagnoses This section includes the primary and secondary diagnoses documented for the Encounter. Date/Time Primary/Secondary Diagnosis Diagnosis Name Provider Source Sep 26, 2023 04:30 PM PRIMARY Other problems related to housing and economic circumstances LISA LAND [facility] Social History: Smoking Status (Most current) and Tobacco Use (All prior to encounter date) This section includes the most current, and the historical, smoking and tobacco- related health factors from the [place] facility where the Encounter took place. Current Smoking Status This section includes the most current smoking, or tobacco-related health factor, from the [place] facility where the Encounter took place. Date/Time Current Smoking Status Comment Yadira ity Oct 06, 2020 11:45 AM VA-TOBACCO USER EVERY DAY [facility] Tobacco Use History This section includes a history of the smoking, or tobacco-related health factors, that were collected on or before the date of the Encounter. The data comes from the [place] facility where the Encounter took place. Date/Time Smoking Status/Tobacco Use Comment F acility Oct 06, 2020 11:45 AM VA-TOBACCO USE ADVICE [facility] [place] [facility] Oct 06, 2020 11:45 AM VA-TOBACCO USE COORDINATOR OF HEALTH SERVICES NO [facility] [place] [facility] Oct 06, 2020 11:45 AM VA-TOBACCO USE MED NO [facility] [place] [facility] Oct 06, 2020 11:45 AM VA-TOBACCO USE WI 30 MIN OF WAKEUP [facility] [place] [facility] Oct 06, 2020 11:45 AM VA-TOBACCO USER EVERY DAY [place] [facility] [place] [facility] Encounter Notes: All associated encounter notes This section contains the clinical notes associated to the Encounter. Date/Time Encounter Note(s) Provider Source Sep 26, 2023 04:30 PM HOMELESS PROGRAM TELEPHONE ENCOUNTER NOTE: LOCAL TITLE: [id number] CONTACT STANDARD TITLE: HOMELESS PROGRAM TELEPHONE ENCOUNTER NOTE DATE OF NOTE: SEP 26, 2023@16:30 ENTRY DATE: OCT 02, 2023@11:25:18 AUTHOR: LISA LAND COSIGNER: NIKUNJ MATSON URGENCY: STATUS: COMPLETED CLICK HERE TO BEGIN Telephone contact with [place] Length of contact:15 min Case management stage:Maintenance Diagnosis Addressed: Other problems related to housing and economic circumstances (ICD-10-CM Z59.89) Subject of call:(click one or more)other:Vet requested Detox program information Description of contact:Vet call to ask for Detox programs in the community. TW provided the information for 3 community programs close to the Vet ([facility], [facility] and [facility]). Vet reported he know the providers and that he will call. call end with no concerns. Vet was receptive and cooperative. Notable changes in mental status:none Any clinical indications of increased risk? No If yes, CSSRS was completed on this date Next Steps:f/u on the [facility] detox program *This case is supervised by SHRADDHA Carpenter. Diagnosis, treatment plan, and response to care are reviewed in standard 1-hour, or more, weekly individual supervision meeting. This plastering supervisor has read and discussed the case with the supervisee and this plastering supervisor concurs with what is written in the progress note. /monica/ ARAMIS ROLON [facility] Wharf Tally Clerk Signed: 10/02/2023 11:31 /es/ NIKUNJ GARCES Quality Control Operator Cosigned: 10/03/2023 13:11 ARAMIS LAND [facility]
--- OUTSIDE RECORDS SUMMARY | 2024-08-17 14:28 | XMS_ITS | Encounter Summary ---
Author Name [place] Address [address] [place] [address] Support Name Relationship Address Phone DANUTA CASTELAN Emergency Contact Unknown Selected Encounter This section includes the information on record at [place] for the Encounter. Date/Time Encounter Type Encounter Description Reason Provider Source Oct 16, 2023 01:00 PM HC PRO PHONE CALL 5-10 MIN TELEPHONE HCMI ICD-10-CM Z59.9 Problem related to housing and economic circumstances, JAK Camara [facility] Encounter Template Text not used by [place] Assessments - Encounter Diagnoses This section includes the primary and secondary diagnoses documented for the Encounter. Date/Time Primary/Secondary Diagnosis Diagnosis Name Provider Source Oct 16, 2023 01:00 PM PRIMARY Problem related to housing and economic circumstances, JAK Camara [facility] Social History: Smoking Status (Most current) and Tobacco Use (All prior to encounter date) This section includes the most current, and the historical, smoking and tobacco- related health factors from the [place] facility where the Encounter took place. Current Smoking Status This section includes the most current smoking, or tobacco-related health factor, from the [place] facility where the Encounter took place. Date/Time Current Smoking Status Comment Yadira carmonay Oct 06, 2020 11:45 AM VA-TOBACCO USER EVERY DAY [facility] Tobacco Use History This section includes a history of the smoking, or tobacco-related health factors, that were collected on or before the date of the Encounter. The data comes from the [place] facility where the Encounter took place. Date/Time Smoking Status/Tobacco Use Comment F acility Oct 06, 2020 11:45 AM VA-TOBACCO USE ADVICE [facility] [place] [facility] Oct 06, 2020 11:45 AM VA-TOBACCO USE ORNAMENTER HAND NO [facility] [place] [facility] Oct 06, 2020 11:45 AM VA-TOBACCO USE MED NO [facility] [place] [facility] Oct 06, 2020 11:45 AM VA-TOBACCO USE WI 30 MIN OF WAKEUP [facility] [place] [facility] Oct 06, 2020 11:45 AM VA-TOBACCO USER EVERY DAY VA [facility] [place] [facility] Encounter Notes: All associated encounter notes This section contains the clinical notes associated to the Encounter. Date/Time Encounter Note(s) Provider Source Oct 17, 2023 07:30 AM HOMELESS PROGRAM TELEPHONE ENCOUNTER NOTE: LOCAL TITLE: [id number] CONTACT STANDARD TITLE: HOMELESS PROGRAM TELEPHONE ENCOUNTER NOTE DATE OF NOTE: OCT 17, 2023@07:30 ENTRY DATE: DEC 19, 2023@10:45:48 AUTHOR: LISA LAND COSIGNER: RIGO BEARD URGENCY: STATUS: COMPLETED CLICK HERE TO BEGIN Telephone contact with Length of contact:1 minute Case management stage:Maintenance Diagnosis Addressed:z59.89 Subject of call:(click one or more)schedule an in-person visit Description of contact:Karyn send a text message to cancel today HV. Karyn reported An emergency at his workplace, leaving to [facility] next week . Notable changes in mental status:none Any clinical indications of increased risk? No If yes, CSSRS was completed on this date Next Steps: conduct efforts to schedule in person. *This case is supervised by Alma Klein [facility]. Diagnosis, treatment plan, and response to care are reviewed in standard 1-hour, or more, weekly individual supervision meeting. This tracer bullet section supervisor has read and discussed the case with the supervisee and this tracer bullet section supervisor concurs with what is written in the progress note. /monica/ ARAMIS MELENDREZ [facility] Underground Electrician Signed: 12/19/2023 10:58 /JENNY Dickey PSYCH SOCIAL WORKER [facility] Underground Electrician Cosigned: 12/19/2023 14:51 [facility] Oct 16, 2023 01:00 PM HOMELESS PROGRAM TELEPHONE ENCOUNTER NOTE: LOCAL TITLE: [id number] CONTACT STANDARD TITLE: HOMELESS PROGRAM TELEPHONE ENCOUNTER NOTE DATE OF NOTE: OCT 16, 2023@13:00 ENTRY DATE: DEC 19, 2023@10:43:19 AUTHOR: LISA LAND COSIGNER: RIGO BEARD URGENCY: STATUS: COMPLETED CLICK HERE TO BEGIN Telephone contact with [facility] Length of contact:5 minutes Case management stage:Maintenance Diagnosis Addressed:z59.89 Subject of call:(click one or more)schedule an in-person visit Description of contact:TW reach out to schedule a HV, Vet agreed to meet tomorrow 10/17/23 Notable changes in mental status:none Any clinical indications of increased risk? No If yes, CSSRS was completed on this date Next Steps:hv 10/17/23 *This case is supervised by Alma Klein [facility]. Diagnosis, treatment plan, and response to care are reviewed in standard 1-hour, or more, weekly individual supervision meeting. This tracer bullet section supervisor has read and discussed the case with the supervisee and this tracer bullet section supervisor concurs with what is written in the progress note. /monica/ ARAMIS ROLON [facility] Underground Electrician Signed: 12/19/2023 10:45 /monica/ JENNY Bynum [facility] Underground Electrician Cosigned: 12/19/2023 13:47 ARAMIS LAND [facility]
--- OUTSIDE RECORDS SUMMARY | 2024-08-17 14:28 | XMS_ITS | Encounter Summary ---
Author Name [facility] [place] Address [address] [place] [address] Support Name Relationship Address Phone DANUTA CASTELAN Emergency Contact Unknown [phone] Selected Encounter This section includes the information on record at [place] for the Encounter. Date/Time Encounter Type Encounter Description Reason Pro vider Source Oct 03, 2023 01:05 PM Outpatient Encounter TELEPHONE [facility]I IHE Encounter Template Text not used by [place] Social History: Smoking Status (Most current) and Tobacco Use (All prior to encounter date) This section includes the most current, and the historical, smoking and tobacco- related health factors from the [place] facility where the Encounter took place. Current Smoking Status This section includes the most current smoking, or tobacco-related health factor, from the [place] facility where the Encounter took place. Date/Time Current Smoking Status Comment Yadira stanton Oct 06, 2020 11:45 AM VA-TOBACCO USER EVERY DAY [place] [facility] [facility] Tobacco Use History This section includes a history of the smoking, or tobacco-related health factors, that were collected on or before the date of the Encounter. The data comes from the [place] facility where the Encounter took place. 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 Date/Time Encounter Note(s) Provider Source Oct 03, 2023 01:00 PM HOMELESS PROGRAM TELEPHONE ENCOUNTER NOTE: LOCAL TITLE: [id number] CONTACT STANDARD TITLE: HOMELESS PROGRAM TELEPHONE ENCOUNTER NOTE DATE OF NOTE: OCT 03, 2023@13:00 ENTRY DATE: OCT 11, 2023@16:52:59 AUTHOR: LISA LAND COSIGNER: ALMA MATSON URGENCY: STATUS: COMPLETED Vet text TW the following message, I went to [facility] in [place] successfully completed alcohol detox *This case is supervised by Alma Matson [facility]. Diagnosis, treatment plan, and response to care are reviewed in standard 1-hour, or more, weekly individual supervision meeting. This supervisor cigar making hand has read and discussed the case with the supervisee and this supervisor cigar making hand concurs with what is written in the progress note. /monica/ ARAMIS ROLON [facility] Eyelet Machine Operator Signed: 10/11/2023 16:55 /monica/ ALMA MATSON [facility] Microbiology Supervisor Cosigned: 10/14/2023 08:47 ARAMIS LAND [facility]
--- OUTSIDE RECORDS SUMMARY | 2024-08-17 14:28 | XMS_ITS ---
Author Name [facility] [place] Organization [facility] [place] Address [address] [place] [address] Support Name Relationship Address Phone DANUTA CASTELAN Emergency Contact Unknown [phone] Selected Encounter This section includes the information on record at [place] for the Encounter. Date/Time Encounter Type Encounter Description Reason Provider Source Sep 05, 2023 03:42 PM Outpatient Encounter CAREGIVER SUPPORT PROGRAM ARAMIS FRIED [facility] Encounter Template Text not used by [place] Social History: Smoking Status (Most current) and Tobacco Use (All prior to encounter date) This section includes the most current, and the historical, smoking and tobacco- related health factors from the [place] facility where the Encounter took place. Current Smoking Status This section includes the most current smoking, or tobacco-related health factor, from the [place] facility where the Encounter took place. Date/Time Current Smoking Status Comment Yadira stanton Oct 06, 2020 11:45 AM [facility] Tobacco Use History This section includes a history of the smoking, or tobacco-related health factors, that were collected on or before the date of the Encounter. The data comes from the [place] facility where the Encounter took place. 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 Date/Time Encounter Note(s) Provider Source Sep 05, 2023 03:43 PM MENTAL HEALTH DIAGNOSTIC STUDY NOTE: LOCAL TITLE: MENTAL HEALTH DIAGNOSTIC STUDY STANDARD TITLE: MENTAL HEALTH DIAGNOSTIC STUDY NOTE DATE OF NOTE: SEP 05, 2023@15:43:11 ENTRY DATE: SEP 05, 2023@15:43:11 AUTHOR: LISA FRIED COSIGNER: NIKUNJ MATSON URGENCY: STATUS: COMPLETED Quality of Life Enjoyment and Satisfaction Questionnaire - Short Form (Q-LES-Q-SF) Date Given: 08/12/2023 Clinician: Aramis Fried Location: [facility] Support [facility] : Jose Castelan SSN: [id number] : [birth year] ([birth year]) Gender: Male Quality of Life/Life Enjoyment Percent of Max Score*: 63% Satisfaction with Medications (Item 15)*: VERY GOOD Self-Rating of Overall Satisfaction (Item 16)*: FAIR Critical Items*: *Note: All scores reflect respondent satisfaction ratings for during the past week. Questions and Answers Taking everything into consideration, during the past week how satisfied have you been with: 1. Your physical health? Fair Taking everything into consideration, during the last week how satisfied have you been with: 2. Your mood? Good Taking everything into consideration, during the past week how satisfied have you been with: 3. Your work? Fair Taking everything into consideration, during the last week how satisfied have you been with: 4. Your household activities? Fair Taking everything into consideration, during the past week how satisfied have you been with: 5. Your social relationships? Fair Taking everything into consideration, during the last week how satisfied have you been with: 6. Your family relationships? Fair Taking everything into consideration, during the past week how satisfied have you been with: 7. Your leisure time activities? Fair Taking everything into consideration, during the last week how satisfied have you been with: 8. Your ability to function in daily life? Good Taking everything into consideration, during the past week how satisfied have you been with: 9. Your sexual drive, interest and/or performance? Very Good Taking everything into consideration, during the last week how satisfiedhave you been with: 10. Your economic status? Fair Taking everything into consideration, during the past week how satisfied have you been with: 11. Your living/housing situation? Good Taking everything into consideration, during the last week how satisfied have you been with: 12. Your ability to get around physically without feeling dizzy or unsteady or falling? Good Taking everything into consideration, during the past week how satisfied have you been with: 13. Your vision in terms of ability to do work or hobbies? Good Taking everything into consideration, during the last week how satisfied have you been with: 14. Your overall sense of well-being? Fair Taking everything into consideration, during the past week how satisfied have you been with: 15. Your medication? Very Good Taking everything into consideration, during the last week how satisfied have you been with: 16. How would you rate your overall life satisfaction and contentmentduring the past week? Fair Information contained in this note is based on a self-report assessment and is not sufficient to use alone for diagnostic purposes. Assessment results should be verified for accuracy and used in conjunction with other diagnostic activities. The Q-LES-Q-SF is copyrighted by Osvaldo Bauer, Ph.D. Permission granted to electronically reproduce for clinicians use and research in non-industry studies. For other uses, contact copyright mendez. /monica/ ARAMIS GARCES Sales Developer Signed: 09/05/2023 15:44 /monica/ NIKUNJ GARCES Building Services Engineer Cosigned: 09/05/2023 16:01 ARAMIS FRIED [facility]
--- OUTSIDE RECORDS SUMMARY | 2024-08-17 14:28 | XMS_ITS | Encounter Summary ---
Author Name [facility] [place] Address [address] [place] [address] Support Name Relationship Address Phone DANUTA CASTELAN Emergency Contact Unknown [phone] Selected Encounter This section includes the information on record at [place] for the Encounter. Date/Time Encounter Type Encounter Description Reason Provider Source Nov 15, 2023 10:00 AM HC PRO PHONE CALL 5-10 MIN TELEPHONE HCMI ICD-10-CM Z59.9 Problem related to housing and economic circumstances, JAK Camara [facility] Encounter Template Text not used by [place] Assessments - Encounter Diagnoses This section includes the primary and secondary diagnoses documented for the Encounter. Date/Time Primary/Secondary Diagnosis Diagnosis Name Provider Source Nov 15, 2023 10:00 AM PRIMARY Problem related to housing and economic circumstances, JAK Camara [facility] Social History: Smoking Status (Most current) [...] 2020 11:45 AM VA-TOBACCO USER EVERY DAY [facility] Tobacco Use History This section includes a history of the smoking, or tobacco-related health factors, that were collected on or before the date of the Encounter. The data comes from the [place] facility where the Encounter took place. 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 Date/Time Encounter Note(s) Provider Source Nov 15, 2023 10:00 AM HOMELESS PROGRAM TELEPHONE ENCOUNTER NOTE: LOCAL TITLE: [id number] CONTACT STANDARD TITLE: HOMELESS PROGRAM TELEPHONE ENCOUNTER NOTE DATE OF NOTE: NOV 15, 2023@10:00 ENTRY DATE: DEC 19, 2023@10:59:09 AUTHOR: LISA LAND COSIGNER: RIGO BEARD URGENCY: STATUS: COMPLETED CLICK HERE TO BEGIN Telephone contact with Length of contact:5 minutes Case management stage:Maintenance Diagnosis Addressed:z 59.89 Subject of call:(click one or more)schedule an in-person visit Description of contact: TW contact the vet to schedule an inperson, Vet reported he is busy this week. Vet reported he will provide his availability when possible. Notable changes in mental status:none Any clinical indications of increased risk? No If yes, CSSRS was completed on this date Next Steps: contact Vet to [place] *This case is supervised by Alma Klein [facility]. Diagnosis, treatment plan, and response to care are reviewed in standard 1-hour, or more, weekly individual supervision meeting. This supervisor remelt has read and discussed the case with the supervisee and this supervisor remelt concurs with what is written in the progress note. /monica/ ARAMIS ROLON [facility] Inside Account Representative Signed: 12/19/2023 11:01 /JENNY Dickey LICSW [facility] Inside Account Representative Cosigned: 12/19/2023 14:55 ARAMIS LAND [facility]
--- OUTSIDE RECORDS SUMMARY | 2024-08-17 14:28 | XMS_ITS | Continuity of Care Document ---
Author Name [facility] Organization [facility] Care Team Providers Care Kiln Remover Name Role Phone [facility] Unavailable Unavailable Problems Combined list of problems from Department of Defense and Veterans Affairs facilities. It does not include entries that were removed or entered in error. Problem Status Onset Date Problem Type Date of Resolution Comments Source Alcoholism Active Condition [facility] [place] [facility] Homeless single person Active Condition [facility] [place] [facility] Housing problem Active Condition [facility] [place] [facility] Diagnosis: ICD-10-CM Z59.89 Other problems related to housing and economic circumstances Active Diagnosis [facility] [place] [facility] Diagnosis: ICD-10-CM Z59.9 Problem related to housing and economic circumstances, unsp Active Diagnosis [facility] Diagnosis: ICD-10-CM Z56.0 Unemployment, unspecified Active Diagnosis [facility] [place] [facility] Diagnosis: ICD-10-CM F10.90 Alcohol use, unspecified, uncomplicated Active Diagnosis [facility] [place] [facility] Immunizations Combined list of available immunizations from the Department of Defense and Veterans Affairs facilities. Immunization Series Date Given Administered By Site Reaction Lot Number CVX Code Drug Wildlife Control Agent Status Comments Source COVID-19 (MODERNA), MRNA, LNP-S, PF, 100 MCG/0.5 ML DOSE 2 2020 207 complet ed MOD; [id number]; 1 [facility] [place] [facility] COVID-19 (MODERNA), MRNA, LNP-S, PF, 100 MCG/0.5 ML DOSE 1 2020 207 complet ed MOD; [id number]; 1 [facility] [place] [facility] INFLUENZA, UNSPECIFIED FORMULATION 2019 88 complet ed [facility] [place] [facility] [facility] Encounters Combined list of: 1) Encounters from Department of Veterans Affairs facilities [facility] 2) Encounters from the Department of Defense facilities going back up to 280 months. Location Location Details Encounter Type Encounter Number Reason For Visit Attending Provider ADM Date DC Date Status Disposition Source [place] [facility] [place] [facility] PRO PHONE CALL 5-10 MIN [id number] Diagnos is: ICD-10- CM Z59.9 Problem related to housing and economi c circums tances, unsp
FERRY,GUILLERMO ANY J 04/19 [place] [facility] [place] [facility] CASE MANAGEMENT [id number] Diagnos is: ICD-10- CM Z59.9 Problem related to housing and economi c circums tances, unsp
FERRY,GUILLERMO ANY J 04/22 [place] [facility] [facility] [place] [facility] CASE MANAGEMENT [id number] Diagnos is: ICD-10- CM F10.90 Alcohol use, unspeci fied, uncompl icated< br/> FERRY,GUILLERMO ANY J 04/30 [place] [facility] [facility] [place] [facility] PSYTX W PT 30 MINUTES [id number] Diagnos is: ICD-10- CM Z59.9 Problem related to housing and economi c circums tances, unsp
FERRY,GUILLERMO ANY J 05/07 [place] [facility] [facility] [place] [facility] HC PRO PHONE CALL 5-10 MIN [id number] Diagnos is: ICD-10- CM Z59.9 Problem related to housing and economi c circums tances, unsp
FERRY,GUILLERMO ANY J 06/11 [place] [facility] [facility] [place] [facility] CASE MANAGEMENT [id number] Diagnos is: ICD-10- CM Z59.9 Problem related to housing and economi c circums tances, unsp
FERRY,GUILLERMO ANY J 06/13 [place] [facility] [facility] [place] [facility] CASE MANAGEMENT [id number] Diagnos is: ICD-10- CM Z59.9 Problem related to housing and economi c circums tances, unsp
FERRY,GUILLERMO ANY J 06/14 [place] [facility] [facility] [place] [facility] PRO PHONE CALL 5-10 MIN [id number] Diagnos is: ICD-10- CM Z59.9 Problem related to housing and economi c circums tances, unsp
FERRY,GUILLERMO ANY J 07/09 [place] [facility] [place] [facility] CASE MANAGEMENT [id number] Diagnos is: ICD-10- CM Z59.89 Other problem s related to housing and economi c circums tances< br/> Lauren LANDTAVO A 08/12 [place] [facility] [place] [facility] [place] [facility] COMMUNITY/ WORK REINTEGRAT ION [id number] Diagnos is: ICD-10- CM Z56.0 Unemplo yment, unspeci fied
CANDAGE,LI NDA 08/20 [place] [facility] [place] [facility] [place] [facility] Outpatient Encounter [id number] Lauren LANDTAVO A 09/05 [place] [facility] [facility] [place] [facility] CASE MANAGEMENT [id number] Diagnos is: ICD-10- CM Z59.89 Other problem s related to housing and economi c circums tances< br/> Lauren LANDTAVO A 09/10 [facility] [place] [place] HC PRO PHONE CALL 11-20 MIN [id number] Diagnos is: ICD-10- CM Z59.89 Other problem s related to housing and economi c circums tances< br/> Lauren LAND USTAVO A 09/26 [facility] [place] [place] [facility] En[facility] [id number] 10/02 [facility] [place] [facility] [place] [facility] Encounter [id number] 10/03 [facility] [place] [facility] [place] [facility] HC PRO PHONE CALL 5-10 MIN [id number] Diagnos is: ICD-10- CM Z59.9 Problem related to housing and economi c circums tances, unsp
Lauren LAND USTAVO A 10/16 [facility] [place] [place] [facility] HC PRO PHONE CALL 5-10 MIN [id number] Diagnos is: ICD-10- CM Z59.9 Problem related to housing and economi c circums tances, unsp
Lauren LAND USTAVO A 11/14 [facility] [place] [facility] [facility] [place] [facility] CASE MANAGEMENT [id number] Diagnos is: ICD-10- CM Z59.9 Problem related to housing and economi c circums tances, unsp
Lauren LAND USTAVO A 02/11 [facility] [place] [place] [facility] Out[facility] En[facility] [id number] 02/28 [place] [facility] [place] [facility] [place] SELF-HELP/ PEER SVC PER 15MIN [id number] Diagnos is: ICD-10- CM Z59.9 Problem related to housing and economi c circums tances, unsp
SUNITHA MATSON L 03/02 [place] [facility] [facility] CASE MANAGEMENT [id number] Diagnos is: ICD-10- CM Z59.89 Other problem s related to housing and economi c circums tances< br/> Lauren LAND 04/21 [place] [facility] [facility] [place] [place] [facility] Outpatient Encounter [id number] 06/17 [place] [facility] Social History Combined list of available smoking, tobacco, and other social history from Department of Defense and Veterans Affairs facilities. Social History Type Response Date Comment Sourc e Tobacco smoking status NHIS VA-TOBACCO USER EVERY DAY 10/06/2020 [place] [facility] [place] [facility] History of tobacco use VA-TOBACCO USE WI 30 MIN OF WAKEUP 10/06/2020 [place] [facility] [place] [facility]
--- OUTSIDE RECORDS SUMMARY | 2024-08-17 14:29 | XMS_ITS | Encounter Summary ---
Author Name [facility] [place] Organization [facility] [place] Address [address] [place] [address] Support Name Relationship Address Phone DANUTA CASTELAN Emergency Contact Unknown [phone] Selected Encounter This section includes the information on record at [place] for the Encounter. Date/Time Encounter Type Encounter Description Reason Provider Source Apr 21, 2024 11:15 AM CASE MANAGEMENT HUD/VASH INDIV ICD-10-CM Z59.89 Other problems related to housing and economic circumstances LISA LAND [facility] Encounter Template Text not used by [place] Assessments - Encounter Diagnoses This section includes the primary and secondary diagnoses documented for the Encounter. Date/Time Primary/Secondary Diagnosis Diagnosis Name Provider Source May 06, 2024 03:28 PM PRIMARY Other problems related to housing and economic circumstances LISA LAND [facility] Social History: Smoking Status (Most current) [...] 2020 11:45 AM VA-TOBACCO USER EVERY DAY [facility] Tobacco Use History This section includes a history of the smoking, or tobacco-related health factors, that were collected on or before the date of the Encounter. The data comes from the [place] facility where the Encounter took place. 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 Oct 06, 2020 11:45 AM VA-TOBACCO USE MED NO [facility] Oct 06, 2020 11:45 AM VA-TOBACCO USE WI 30 MIN [facility] WAKEUP [facility] Oct 06, 2020 11:45 AM [facility]BACCO USER [facility] Encounter Notes: All associated encounter notes This section contains the clinical notes associated to the Encounter. Date/Time Encounter Note(s) Provider Source Apr 21, 2024 11:15 AM HOMELESS PROGRAM N OTE: LOCAL TITLE: [facility] PROGRESS NOTE STANDARD TITLE: HOMELESS PROGRAM NOTE DATE OF NOTE: APR 21, 2024@11:15 ENTRY DATE: MAY 06, 2024@15:19:30 AUTHOR: LISA LAND COSIGNER: URGENCY: STATUS: COMPLETED Nathrop identified by (select two): Full Name, Facial Recognition Location of visit: Home visit Case Management Stage: Pre-discharge Length of contact: 45 min Diagnosis addressed: z 59.89 Description of contact: TW arrived to vet home. Tarit was at his apartment. Vet reported he would like to move to a bigger place. Vet reported he will start asking his current landlord for other properties he can move. Tarit reported his lease end in 4 months. Tarit reported he want to be prepared as the end of his lease is approaching. Karyn is interested in [facility]. Tarit want to volunteer more hours. Vet reported court case is closed. Vet reported he fulfill all the court conditions. Reported he completed the hours mandated by court. Vet reported to have a friend as a possibility for him to move. vet reported to keep efforts to stay sober and attending AA meetings. Visit end with no concerns. Mental status: Euthymic, O3X, mood Wnl, sustained eye contact, cooperative and receptive. Normal speech, appearance wnl. No S/I, H/I reported. Primary goal: Obtain and maintain housing Objectives addressed: housing stability PLAN/Next steps: TW will continue efforts to support the Vet in his housing search. /monica/ ARAMIS GARCES Electric Switch Repairer Signed: 05/06/2024 15:28 Receipt Acknowledged By: 05/07/2024 09:00 /monica/ NIKUNJ GARCES Tank Cleaning Supervisor [facility]
--- OUTSIDE RECORDS SUMMARY | 2024-08-17 14:29 | XMS_ITS | Encounter Summary ---
Author Name [facility] Organization [facility] [place] Address [address] [place] [id number] Support Name Relationship Address Phone DANUTA CASTELAN Emergency Contact Unknown [phone] Selected Encounter This section includes the information on record at [place] for the Encounter. Date/Time Encounter Type Encounter Description Reason Pro vider Source Feb 29, 2024 12:54 PM Outpatient Encounter TELEPHONE TRIAGE IHE Encounter Template Text not used by VA Social History: Smoking Status (Most current) and Tobacco Use (All prior to encounter date) This section includes the most current, and the historical, smoking and tobacco- related health factors from the [place] facility where the Encounter took place. Current Smoking Status This section includes the most current smoking, or tobacco-related health factor, from the [place] facility where the Encounter took place. Date/Time Current Smoking Status Comment Yadira stanton Oct 06, 2020 11:45 AM VA-TOBACCO USER EVERY DAY [place] [facility] [place] [facility] Tobacco Use History This section includes a history of the smoking, or tobacco-related health factors, that were collected on or before the date of the Encounter. The data comes from the [place] facility where the Encounter took place. Date/Time Smoking Status/Tobacco Use Comment F acility Oct 06, 2020 11:45 AM VA-TOBACCO USE ADVICE [facility] [place] 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 Oct 06, 2020 11:45 AM VA-TOBACCO USE MED NO [facility] [place] [facility] Oct 06, 2020 11:45 AM VA-TOBACCO USE WI 30 MIN OF WAKEUP [facility] [place] [facility] Oct 06, 2020 11:45 AM VA-TOBACCO USER EVERY DAY [place] [facility] [place] [facility] Encounter Notes: All associated encounter notes This section contains the clinical notes associated to the Encounter. Date/Time Encounter Note(s) Provider Source Feb 29, 2024 12:54 PM RN PROGRESS NOTE: LOCAL TITLE: CCC: CLINICAL TRIAGE STANDARD TITLE: RN PROGRESS NOTE DATE OF NOTE: FEB 29, 2024@12:54:29 ENTRY DATE: FEB 29, 2024@12:54:29 AUTHOR: FILIPE RAYGOZA EXP COSIGNER: URGENCY: STATUS: COMPLETED Patient Demographics Patient Name: JOSE CASTELAN Patient Primary [address]: [address] [place] [id number] Patient Primary Phone: [phone] Patient : 1960 Patient Age: 63 Caller/Recipient Relation to Patient: Self Emergency Contact: DANUTA CASTELAN Nursing Plan and Disposition Other course(s) of action Alternative course of action Alternative courses of action: Information Non-Triage/Non-Symptom Call Other Description: Information Clinical Contact Center Codes Clinic/Location: [facility] PHONE CCC RN Notes Notes & Information: reports the following: He was in close contact with someone on 02/28/2024 who tested positive for COVID-19.He is not experiencing any new S/Sx. Provided him with information regarding testing per cdc.gov website. verbalized understanding. Provided him with phone number for him to obtain free COVID-19 test kits: [phone]. /monica/ ARGELIA Reyes,RN VISN 2 [facility] NURSE Signed: 02/29/2024 12:54 FILIPE RAYGOZA [place] [facility] [place] [facility]
--- OUTSIDE RECORDS SUMMARY | 2024-08-17 14:29 | XMS_ITS | Encounter Summary ---
Author Name [facility] Organization [facility] [place] Address [address] [place] [id number] Support Name Relationship Address Phone DANUTA CASTELAN Emergency Contact Unknown [phone] Selected Encounter This section includes the information on record at [place] for the Encounter. Date/Time Encounter Type Encounter Description Reason Pro vider Source Jun 17, 2024 05:29 PM Outpatient Encounter HUD/VAS INDIV IHE Encounter Template Text not used by VA Social History: Smoking Status (Most current) and Tobacco Use (All prior to encounter date) This section includes the most current, and the historical, smoking and tobacco- related health factors from the [place] facility where the Encounter took place. Current Smoking Status This section includes the most current smoking, or tobacco-related health factor, from the [place] facility where the Encounter took place. Date/Time Current Smoking Status Comment Yadira itjer Oct 06, 2020 11:45 AM VA-TOBACCO USER [facility] Tobacco Use History This section includes a history of the smoking, or tobacco-related health factors, that were collected on or before the date of the Encounter. The data comes from the [place] facility where the Encounter took place. 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 Date/Time Encounter Note(s) Provider Source Jun 17, 2024 05:29 PM SOCIAL WORK NOTE: LOCAL TITLE: [facility] DISCHARGE STANDARD TITLE: SOCIAL WORK NOTE DATE OF NOTE: JUN 17, 2024@17:29 ENTRY DATE: JUN 17, 2024@17:30:03 AUTHOR: LISA LANDIGNER: URGENCY: STATUS: COMPLETED [place] is being discharged from the [facility] program on this date: Jun [place] is graduating from [facility] case management and will retain a Section 8 voucher Reason for graduation: Russel has met their goals and no longer has a need for this program. [place] has demostrated an ability to access supports as needed. Summary of participation in the program, including barriers encountered/goals met while in the program: Russel is stably housed. He has been residing at [facility] since the voucher was issued. His landlord has not reported any concerns about his tenancy recently. [place] have a situation where he was charged for destroying property while under the influence of alcohol and sleep deprived. reported he completed his court orders and consequences of his behavior and actions. reported he gain insight and knowledge to appropriately deal with situations in life moving forward. [place] keeps up with his rent and utility payments. He has demonstrated insight for future goals. is working to obtain a bigger place to live. [place] is self-motivated and organized toward his goals. use the available community services. [place]wa has medical treatment with non-VA providers. [place]wa have the support of his brother. 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 [place]wa is current with rent/bills for at least 6 months:Yes [place] is in agreement with the plan to discharge:Yes has a Hx of suicidal ideation/behavior:No If yes, how has this been addressed? Current provider contacts/referrals made: [place] have non-VA services on place. Russel has been provided with the number for the National Crisis line . [facility] discharge letter has been sent the . [place]wa has been informed that they may contact the [facility] program for assistance at any time should the need arise at [phone]. is aware that they must recertify with the [facility] on an annual basis and will contact the [facility] program for assistance if needed. has been provided with the number for the National Crisis line 988, press 1 for crisis line. [facility] discharge letter has been sent the . Lead CM/Franchise Sales Director has approved this discharge HOMES entry completed [facility] [id number] [facility] Tiskilwa ID: [id number] 's Last Name: Jessica Tiskilwa's First Name: Jose SSN: [id number] Date of : 1960 HOMES Episode Start Date: 06/08/2022 Program Entry Date: 08/29/2022 [facility] Exit Form Staff Login (First and Last Name): [facility] Site (3-digit [facility] code plus 2-digit suffix, if any): 631 Date this form completed (mm/dd/yy): 06/18/2024 1. T[place]ilwa's name (last name, first initial) Jose Castelan 2. Social Security Number [id number] 3. Date Of (mm/dd/yy) 1960 4. Date the [place] exited the [facility] program: (mm/dd/yy) 06/18/2024 5. Which is the most important reason why the ended involvement in [facility] case management? [place]wa accomplished his/her goals and/or obtained access to services and no longer has a need for this program 5a. Did another household member of the [place]wa continue to use the voucher? 6. What is the status of the 's [facility] voucher? will continue to use the voucher 7. What is the 's housing arrangement at program exit (location where the was sleeping on the night of program exit)? Housing rented by T[place]wa with [facility] voucher Specify subsidy type: 8. What is the zip code of the location where the [place] is residing at program exit (if unknown, use current location)? [id number] 8a. In which [place] will the be residing at the time of program exit (if unknown, use current location)? [facility] 9. Housing stability: How would you describe the [place]'s housing situation at program exit? Stably housed 10. With whom will the be living at program exit? Alone 11. What is the 's arrangement for employment at program exit? Disabled or retired 12. What is the 's arrangement for receipt of VA financial benefits (disability payments or pension) at the time of program exit? Do not know [place]'s status with respect to VA financial benefits 13. What is the 's arrangement for receipt of non-VA financial benefits (disability payments or other support) at the time of program exit? Currently receiving non-VA benefits and will continue 14. Did the [place] receive any money in the 30 days prior to program exit? manager architectural omitted item a. Employment (include CWT/SE) b. Compensation for service connected psychiatric condition c. Compensation for other service connected condition d. Non-service connected pension e. Fpc income from Social Security f. Pension from a former job g. Supplemental Security Income (SSI) h. Social Security Disability Income (SSDI) i. Private disability insurance j. Worker's compensation k. Unemployment insurance l. Temporary Assistance for Needy Families (TANF) or similar local program m. General Assistance (GA) or similar local program n. Child support o. Alimony or other spousal support p. All other sources (do not include food stamps) Total Income 15. Did the [place] receive any non-salcedo benefits in the 30 days prior to program exit? manager architectural omitted item a. Medicaid health insurance program or similar local program b. Medicare health insurance program or similar local program c. Temporary Rental Assistance d. Homeless Prevention and Rapid Re-housing Program (HPRP) Funds e. [place] Service Organizations f. State Children's Health Insurance Program or similar local program g. Supplemental Nutrition Assistance Program (SNAP) or Food [place] h. Special Supplemental Nutrition Program for Women, Infants and Children (WIC) i. Temporary Assistance for Needy Families (TANF) or similar local program Food Service Team Member Services j. Temporary Assistance for Needy Families (TANF) or similar local program Transportation Services k. Other [facility]-funded services l. Bus, subway, train or cab voucher m. SSI/SSDI Outreach, Access and Recovery (SOAR) o. Other Other (Specify) Follow-up Arrangements: Select the code that best describes arrangements made at program exit. Include arrangements for VA treatment only. 16. Alcohol problems 's treatment has been arranged with non-VA provider 17. Drug problems Not a problem area for this 18. Mental health problems (other than drug or alcohol) [place]wa's treatment has been arranged with non-VA provider 19. Medical problems [place]'s treatment has been arranged with non-VA provider 20. Social and recreational deficits Not a problem area for this 21. Vocational skill deficits Not a problem area for this /monica/ ARAMIS ROLON [facility] Biological Photographer Signed: 06/18/2024 14:33 Receipt Acknowledged By: 06/18/2024 14:50 /es/ AMADA AMAYA [facility] SAP MOBILITY ARCHITECT 06/24/2024 13:41 /es/ JENNY Bynum [facility] Biological Photographer 06/19/2024 11:55 /es/ AZRA MATSON 06/22/2024 07:59 /es/ NIKUNJ MATSON [facility] Franchise Sales Director ARAMIS [place] [facility]
--- OUTSIDE RECORDS SUMMARY | 2024-08-17 14:29 | XMS_ITS | Data Portability ---
Author Organization [place] - [facility], Allergy Address [address] [place] [id number] Care Team Providers Care Fire Assistant Name Role Phone JASMIN MIRELES Primary Care Provider Assessment No assessment recorded. Plan of Treatment Reminders Order Date Submit Date Provider Last Modified By Organization Details Last Modified Time Details Appointments None record ed. Lab None record ed. Referral None record ed. Procedures None record ed. Surgeries None record ed. Imaging None record ed. Medication Orders None record ed. Patient TargetsNo targets recorded. Patient InstructionsNo instructions recorded. Reason for Referral None Reported. Results Created Date Observation Date Name Description Value Unit Range Abnormal Flag Note LastModifiedBy Organization Detail LastModifiedTime 02/13/20 audio gram No observ ation record ed. BARCODE Not Available 2023 17:24:14 04/22/20 24 07/04/2022 imagi ng/di agnos tic resul t No observ ation record ed. [email or web address] Not Available 13:03:20 04/22/20 24 07/31/2023 imagi ng/di agnos tic resul t No observ ation record ed. [email or web address] Not Available 13:03:48 Result Notes None recorded. Problems Name Problem SNOMED Code Status Onset Date Resolution Date Notes Provider Name and Address Organization Details Recorded Time Gastroeso phageal reflux disease without esophagit is 719940822 Active 2022 Gastro-es ophageal reflux disease without esophagit is; Note: Date Diagnosed : 3 8:32 AM (K21.9) Not Available [facility] 4 03:14:08 Neck pain 17045443 Active 2022 Cervicalg ia; Note: Date Diagnosed : 07/05/2023 11:52 AM (M54.2) Not Available [facility] 4 03:14:09 Tobacco dependenc e caused by cigarette s 68743834814 553381 Active 2022 Nicotine dependenc e, cigarette s, uncomplic ated; Note: Date Diagnosed : 07/05/2023 11:52 AM (F17.210) Not Available [facility] 4 03:14:09 Mass of neck 088981822 Active 2022 Localized swelling, mass and lump, neck; Note: Date Diagnosed : 07/05/2023 12:01 PM (R22.1) Not Available [facility] 4 03:14:08 Neck swelling 455273273 Active 2022 Localized swelling, mass and lump, neck; Note: Date Diagnosed : 07/05/2023 12:01 PM (R22.1) Not Available [facility] 4 03:14:08 Bilateral tinnitus 03874445543 02 Active 2023 PARAG CASTILLO, AUD [address] [facility],[place] [address], [place], [address] , [facility] - [facility] 4 13:44:34 Sensorine ural hearing loss of bilateral ears 844013476 Active 2023 PARAG CASTILLO AUD [address] [facility],[place] [address], [place], [address] , [facility] - [facility] 4 13:44:42 Notes:Alcohol dependence, un complicated Note: Date Diagnosed: 07/05/2023 11:52 AM (F10.20) Note: Date Diagnosed: 07/05/2023 11:52 AM (F10.20) Problem Notes None recorded. Procedures Surgical History Date Name Laterality Status Provider Name and Address Organization Details Recorded Time 02/13/2024 Comp Audio with Tymps (89310 & 89865) completed PARAG CASTILLO AUD [address] [facility],TYSHAWN [facility], [place], [address], [facility] - [facility] 02/13/2024 13:44:26 Imaging Results Imaging Date Name Status LastModified by Organiz ation Details LastModified Time 02/13/2024 audiogram completed BARCODE Information no t available 02/13/2024 17:24:14 07/04/2022 imaging/diagno stic result completed Information not available 04/22/2024 13:03:20 07/31/2023 imaging/diagno stic result completed Information not available 04/22/2024 13:03:48 Procedure Notes None recorded. Medical Equipment None Reported. Allergies No known drug allergies Medications Name Sig Start Date Stop Date Status Note LastModified by Organization Details LastModified Time quetiapin e 25 mg tablet 02/12 completed Medicati on ID: [id number] B rand Name: quetiapi ne Send Method: E-Prescr ibed Sub s Allowed: subs OK Medic ationGen ericName : quetiapi ne Medic ation ID: [id number] B rand Name: quetiapi ne Send Method: E-Prescr ibed Sub s Allowed: subs OK Medic ationGen ericName : quetiapi ne Not Available Not Available Not Available amoxicill in 500 mg capsule TAKE 1 CAPSULE (500 MG) BY ORAL ROUTE 3 TIMES PER DAY X 7 DAYS 02/12 completed Not Available Not Available Not Available clonidine HCl 0.1 mg tablet 02/12 completed Medicati on ID: [id number] B rand Name: clonidin e HCl Send Method: E-Prescr ibed Sub s Allowed: subs OK Medic ationGen ericName : clonidin e HCl [facility] cation ID: [id number] B rand Name: clonidin e HCl Send Method: E-Prescr ibed Sub s Allowed: subs OK Medic ationGen ericName : clonidin e HCl Not Available Not Available Not Available atorvasta tin 20 mg tablet TAKE 1 TABLET BY MOUTH EVERYDAY AT BEDTIME 02/12 completed Not Available Not Available Not Available nicotine 14 mg/24 hr daily transderm al patch 02/12 completed Medicati on ID: [id number] B rand Name: nicotine Send Method: E-Prescr ibed Sub s Allowed: subs OK Medic ationGen ericName : nicotine Medicat ion ID: [id number] B rand Name: nicotine Send Method: E-Prescr ibed Sub s Allowed: subs OK Medic ationGen ericName : nicotine Not Available Not Available Not Available metoprolo l succinate ER 50 mg tablet,ex tended release 24 hr active Medicati on ID: [id number] B rand Name: metoprol ol succinat e Send Method: E-Prescr ibed Sub s Allowed: subs OK Medic ationGen ericName : metoprol ol succinat e Not Available Not Available Not Available citalopra m 10 mg tablet TAKE 1 TABLET BY MOUTH EVERY DAY 02/12 completed Not Available Not Available Not Available albuterol sulfate 1.25 mg/3 mL solution for nebulizat ion active Not Available Not Available Not Available naltrexon e 50 mg tablet 02/12 completed Medicati on ID: [id number] B rand Name: naltrexo ne Send Method: E-Prescr ibed Sub s Allowed: subs OK Medic ationGen ericName : naltrexo ne Medic ation ID: [id number] B rand Name: naltrexo ne Send Method: E-Prescr ibed Sub s Allowed: subs OK Medic ationGen ericName : naltrexo ne Not Available Not Available Not Available metoprolo l succinate ER 100 mg tablet,ex tended release 24 hr TAKE 1 TABLET BY MOUTH EVERY DAY active Not Available Not Available No t Available folic acid 400 mcg tablet active Medicati on ID: [id number] B rand Name: folic acid Sen d Method: E-Prescr ibed Sub s Allowed: subs OK Medic ationGen ericName : folic acid Not Available Not Available Not Available polymyxin B sulfate 10,000 unit-trim ethoprim 1 mg/mL eye drops 02/12 completed Medicati on ID: [id number] B rand Name: polymyxi n B sulf-tri methopri m Send Method: E-Prescr ibed Sub s Allowed: subs OK Medic ationGen ericName : polymyxi n B sulf-tri methopri m Medica tion ID: [id number] B rand Name: polymyxi n B sulf-tri methopri m Send Method: E-Prescr ibed Sub s Allowed: subs OK Medic ationGen ericName : polymyxi n B sulf-tri methopri m Not Available Not Available Not Available omeprazol e 20 mg capsule,d elayed release TAKE 1 CAPSULE ORAL EVERY MORNING ONE HOUR BEFORE MEALS active Not Available Not Available No t Available hydrocort isone 2.5 % topical cream active Medicati on ID: [id number] B rand Name: hydrocor tisone S end Method: E-Prescr ibed Sub s Allowed: subs OK Medic ationGen ericName : hydrocor tisone Not Available Not Available Not Available hydroxyzi ne HCl 25 mg tablet active Medicati on ID: [id number] B rand Name: hydroxyz ine HCl Send Method: E-Prescr ibed Sub s Allowed: subs OK Medic ationGen ericName : hydroxyz ine HCl Not Available Not Available Not Available bisacodyl 5 mg tablet,de layed release 02/12 completed Medicati on ID: [id number] B rand Name: bisacody l Send Method: E-Prescr ibed Sub s Allowed: subs OK Medic ationGen ericName : bisacody l Medica tion ID: [id number] B rand Name: bisacody l Send Method: E-Prescr ibed Sub s Allowed: subs OK Medic ationGen ericName : bisacody l Not Available Not Available Not Available metoprolo l succinate ER 25 mg tablet,ex tended release 24 hr active Medicati on ID: [id number] B rand Name: metoprol ol succinat e Send Method: E-Prescr ibed Sub s Allowed: subs OK Medic ationGen ericName : metoprol ol succinat e Not Available Not Available Not Available propranol ol 20 mg tablet 02/12 completed Medicati on ID: [id number] B rand Name: proprano lol Send Method: E-Prescr ibed Sub s Allowed: subs OK Medic ationGen ericName : proprano lol Medi cation ID: [id number] B rand Name: proprano lol Send Method: E-Prescr ibed Sub s Allowed: subs OK Medic ationGen ericName : proprano lol Not Available Not Available Not Available Vitamin B-1 100 mg tablet active Medicati on ID: [id number] B rand Name: Vitamin B-1 Send Method: E-Prescr ibed Sub s Allowed: subs OK Medic ationGen ericName : Vitamin B-1 Not Available Not Available Not Available hydroxyzi ne HCl 10 mg tablet 02/12 completed Medicati on ID: [id number] B rand Name: hydroxyz ine HCl Send Method: E-Prescr ibed Sub s Allowed: subs OK Medic ationGen ericName : hydroxyz ine HCl Medi cation ID: [id number] B rand Name: hydroxyz ine HCl Send Method: E-Prescr ibed Sub s Allowed: subs OK Medic ationGen ericName : hydroxyz ine HCl Not Available Not Available Not Available losartan 100 mg tablet active Medicati on ID: [id number] B rand Name: losartan Send Method: E-Prescr ibed Sub s Allowed: subs OK Medic ationGen ericName : losartan Not Available Not Available Not Available sertralin e 50 mg tablet 02/12 completed Medicati on ID: [id number] B rand Name: sertrali ne Send Method: E-Prescr ibed Sub s Allowed: subs OK Medic ationGen ericName : sertrali ne Medic ation ID: [id number] B rand Name: sertrali ne Send Method: E-Prescr ibed Sub s Allowed: subs OK Medic ationGen ericName : sertrali ne Not Available Not Available Not Available naproxen 500 mg tablet 02/12 completed Medicati on ID: [id number] B rand Name: naproxen Send Method: E-Prescr ibed Sub s Allowed: subs OK Medic ationGen ericName : naproxen Medicat ion ID: [id number] B rand Name: naproxen Send Method: E-Prescr ibed Sub s Allowed: subs OK Medic ationGen ericName : naproxen Not Available Not Available Not Available cyclobenz aprine 5 mg tablet active Medicati on ID: [id number] B rand Name: cycloben zaprine Send Method: E-Prescr ibed Sub s Allowed: subs OK Medic ationGen ericName : cycloben zaprine Not Available Not Available Not Available acamprosa te 333 mg tablet,de layed release 02/12 completed Medicati on ID: [id number] B rand Name: acampros ate Send Method: E-Prescr ibed Sub s Allowed: subs OK Medic ationGen ericName : acampros ate Medi cation ID: [id number] B rand Name: acampros ate Send Method: E-Prescr ibed Sub s Allowed: subs OK Medic ationGen ericName : acampros ate Not Available Not Available Not Available Gas Relief Extra Strength 125 mg chewable tablet active Medicati on ID: [id number] B rand Name: Gas Relief Extra Strength Send Method: E-Prescr ibed Sub s Allowed: subs OK Medic ationGen ericName : Gas Relief Extra Strength Not Available Not Available Not Available melatonin 5 mg tablet TAKE 1 TABLET BY MOUTH EVERYDAY AT BEDTIME active Not Available Not Available No t Available Purelax 17 gram/dose oral powder 02/12 completed Medicati on ID: [id number] B rand Name: Purelax Send Method: E-Prescr ibed Sub s Allowed: subs OK Medic ationGen ericName : Purelax Medicati on ID: [id number] B rand Name: Purelax Send Method: E-Prescr ibed Sub s Allowed: subs OK Medic ationGen ericName : Purelax Not Available Not Available Not Available Vitals Date Recorded Body height Body mass index (BMI) Body weight Provider Name and Address Organization Details Last Updated DateTime 02/13/2024 182.88 cm 31.2 kg/m2 802285.25 g Kanwal Jones [place] - [facility] 02/13/2024 13:31:21 Social History None recorded. Functional Status None recorded. Mental Status None recorded. Family History Nothing Reported. Medical History No medical history recorded. Past Encounters Encounter ID Performer Location Encounter Start Date Encounter Closed Date Diagnosis/Indication Diagnosis SNOMED-CT Code Diagnosis ICD10 Code 3960 CARLOS BARRAGAN MD [facility] on [address] [place] [address] 02/13/2024 13:21:07 02/13/2024 14:59:06 Bilateral tinnitus 3940554004 102 H93.13 Sensorineu ral hearing loss of bilateral ears 545919577 H90.3 Health Concerns Section Related Observation LastModified by Organization Detai ls LastModified Time None Recorded Concern Status LastModified by Organization Details LastModified Time None Recorded Advance Directives Directive None Recorded Payers Encounter Date Sequence Insurance Name Policy Number Policy Underwood Covered Member ID Underwood Member ID Guarantor Name 02/13/2024 1 [place] [facility] (MEDICAID HMO) [id number] Chepe Lopez [id number] Chepe Lopez Notes Date Note Type Note Provider Name and Address Organization Details Recorded Time 02/13/2024 text/html 63-year-old male presents today for tinnitus after being exposed to an alarm for 2 weeks. This was in August and September. He still notices it but it is less bothersome. He does have a history of noise exposure at concerts. CARLOS BARRAGAN MD [address] [place] [address], [place], [address], [facility] - [facility] 02/14/2024 09:53:49
--- OUTSIDE RECORDS SUMMARY | 2024-08-17 14:29 | XMS_ITS | Encounter Summary ---
Author Name [facility] [place] [facility] [facility] [place] Address [address] [place] [address] Support Name Relationship Address Phone DANUTA CASTELAN Emergency Contact Unknown Selected Encounter This section includes the information on record at [place] for the Encounter. Date/Time Encounter Type Encounter Description Reason Provider Source Mar 02, 2024 11:45 AM SELF-HELP/PEER SVC PER 15MIN [facility] INDIV ICD-10-CM Z59.9 Problem related to housing and economic circumstances, JAN Doshi Angie Encounter Template Text not used by [place] Assessments - Encounter Diagnoses This section includes the primary and secondary diagnoses documented for the Encounter. Date/Time Primary/Secondary Diagnosis Diagnosis Name Provider Source Mar 04, 2024 01:08 PM PRIMARY Problem related to housing and economic circumstances, SILVIANO Doshi [facility] Encounter Notes: All associated encounter notes This section contains the clinical notes associated to the Encounter. Date/Time Encounter Note(s) Provider Source Mar 02, 2024 11:45 AM MENTAL HEALTH SOCI AL WORKER NOTE: LOCAL TITLE: [facility] PEER SUPPORT STANDARD TITLE: MENTAL HEALTH CARDIOPULMONARY SUPERVISOR NOTE DATE OF NOTE: MAR 02, 2024@11:45 ENTRY DATE: MAR 04, 2024@13:02:58 AUTHOR: AZRA MATSON EXP COSIGNER: URGENCY: STATUS: COMPLETED [place] identified by (select two): Full Name, Facial Recognition Location of visit: Home Length of contact: 15 Minutes Purpose: Combat isolation/social support, Housing readiness Description of contact: This web content writer GONZALO Matson met with at his residence after informed web content writer earlier that day via phone that he may have covid. Gluing Machine Operator [employer] had offered covid test kits which accepted and web content writer had delivered them to successfully. [place] stated that he was around a woman at his islam where he helped with their food bank and she had tested positive a couple days ago and was forced to stay home for the next five days. [place] stated he did not feel sick at all but understood that this was recent and it may take another day or two before he becomes sick or not. thanked web content writer for delivering the test kits. Gluing Machine Operator [employer] will also keep informed about any furniture in the area that is being donated that has been looking for such as end tables and night stands. Were there any safety concerns addressed? No Were there any indications of increased risk for suicide (recent losses, medical diagnoses, mood changes, etc.) NO Next steps: Continue providing peer support services when requested Next scheduled contact: Gluing Machine Operator [employer] will contact next week to check on covid status SUPERVISION STATEMENT: Peer Support Apprentices/Specialists receive at minimum monthly supervision from an YARDAGE CONTROL CLERK within the Homeless Program, during which time peer support services are discussed and reviewed. PROCEDURE: H0038 Self-help/Peer Support. /es/ AZRA MATSON Signed: 03/04/2024 13:08 Receipt Acknowledged By: 03/04/2024 17:07 /es/ JENNY Bynum, YARDAGE CONTROL CLERKSARA ROLON/MILI Retail Product Demo Specialist 03/06/2024 10:34 /es/ ARAMIS ROLON [facility] Retail Product Demo Specialist AZRA MATSON
--- OUTSIDE RECORDS SUMMARY | 2024-08-17 14:29 | XMS_ITS | Encounter Summary ---
Author Name [facility] [place] [facility] [place] Organization [facility] [place] [facility] [place] Address [address] [place] [address] Support Name Relationship Address Phone DANUTA CASTELAN Emergency Contact Unknown [phone] Selected Encounter This section includes the information on record at [place] for the Encounter. Date/Time Encounter Type Encounter Description Reason Provider Source Feb 12, 2024 01:00 PM CASE MANAGEMENT [facility] INDIV ICD-10-CM Z59.9 Problem related to housing and economic circumstances, JAK Camara [facility] Encounter Template Text not used by [place] Assessments - Encounter Diagnoses This section includes the primary and secondary diagnoses documented for the Encounter. Date/Time Primary/Secondary Diagnosis Diagnosis Name Provider Source Feb 26, 2024 02:22 PM PRIMARY Problem related to housing and economic circumstances, JAK Camara [facility] Social History: Smoking Status (Most current) and Tobacco Use (All prior to encounter date) This section includes the most current, and the historical, smoking and tobacco- related health factors from the [place] facility where the Encounter took place. Current Smoking Status This section includes the most current smoking, or tobacco-related health factor, from the [place] facility where the Encounter took place. Date/Time Current Smoking Status Comment Yadira ity Oct 06, 2020 11:45 AM VA-TOBACCO USER EVERY DAY [facility] Tobacco Use History This section includes a history of the smoking, or tobacco-related health factors, that were collected on or before the date of the Encounter. The data comes from the [place] facility where the Encounter took place. Date/Time Smoking Status/Tobacco Use Comment F acility Oct 06, 2020 11:45 AM VA-TOBACCO USE ADVICE [facility] Oct 06, 2020 11:45 AM VA-TOBACCO USE INSURANCE CLAIMS SPECIALIST NO [facility] [place] [facility] Oct 06, 2020 11:45 AM VA-TOBACCO USE MED NO [facility] [place] [facility] Oct 06, 2020 11:45 AM VA-TOBACCO USE WI 30 MIN OF WAKEUP [facility] [place] [facility] Oct 06, 2020 11:45 AM [facility]-TOBACCO USER [facility] Encounter Notes: All associated encounter notes This section contains the clinical notes associated to the Encounter. Date/Time Encounter Note(s) Provider Source Feb 12, 2024 01:00 PM HOMELESS PROGRAM NOTE: LOCAL TITLE: [facility] PROGRESS NOTE STANDARD TITLE: HOMELESS PROGRAM NOTE DATE OF NOTE: FEB 12, 2024@13:00 ENTRY DATE: FEB 26, 2024@14:15:19 AUTHOR: LISA LAND COSIGNER: NIKUNJ MATSON URGENCY: STATUS: COMPLETED identified by (select two): Full Name, Facial Recognition Location of visit: Home visit Case Management Stage: Maintenance Length of contact: 60 minutes Diagnosis addressed: z 59.89 Description of contact: TW and license and permit specialist Latoya conducted a HV. We were greeted by the Vet at the front of his apartment and we went to his apartment. license and permit specialist introduced his services. We provide the Vet transportation option. SO and PT1 numbers were shared. Vet reported he want to stop smoking. Vet reported he have COPD. Vet reported he received a therapy machine for his condition. Vet reported that the elevator situation ended up in community time and apology letter, and AA meetings mandated by court. Vet reported he is trying to stay sober and efforts to keep alcohol consumption low. Vet reported his family is supportive. Vet reported he knows how to access community resources and ask for help. Case management stages were reviewed. Vet agreed with prep for d/c change in case management stage. Visit end with no concerns. Mental status: Euthymic and anxious, O3X, mood Wnl, sustained eye contact, cooperative and receptive. Normal speech, appearance wnl. No S/I, H/I reported. Primary goal: Obtain and maintain housing Objectives addressed: housing stability PLAN/Next steps: change case management stage to prep for d/c, continue to provide support for his needs and community resources. /monica/ ARAMIS GARCES Compound Filler Signed: 02/26/2024 14:49 /monica/ NIKUNJ GARCES Blasting Entry Specialist Cosigned: 02/27/2024 09:08 [facility]IS [facility]
== END 2024-08-17 16:16 | disposition home or self-care (01) ==
LOC: HO.HUSH 14:26
PROVIDERS: PCP Internal Medicine; Visit Provider Nurse Practitioner Family
DX: R97.20 Elevated prostate specific antigen [PSA] (principal); N20.0 Calculus of kidney
CPT/HCPCS: 99214

== ENCOUNTER → 2024-08-17 14:26 | Outpatient (BNVA) | payer OTHER, SELFPAY | PROVIDERS: PCP Internal Medicine; Visit Provider Nurse Practitioner Family ==

== ENCOUNTER 2024-12-17 13:32 | Outpatient (AMB) | payer MEDICARE, MEDICAID, SELFPAY ==
--- NOTE | 2024-12-17 13:46 | A.OFFVIS_ITS ---
Intake Visit Reasons: 4 month follow-up Intake Note: Patient presents today for follow up on: nephrolithiasis and elevated psa PSA: 3.64 Urology Medications: Vitamin B6 Blood Thinner: none Procurement Assistant Required: No Procurement Assistant Services: Procurement Assistant Offered & Declined Accompanied by: Self / Same As Patient Allergies No Known Allergies Allergy (Verified 12/17/24 23:05) Medication List - Last Reconciled 12/17/24 by AMBER Sheffield atorvastatin 20 mg PO DAILY hydroxyzine HCl 25 mg PO BEDTIME losartan 100 mg PO DAILY metoprolol succinate ER 100 mg PO DAILY omeprazole 20 mg PO DAILY pyridoxine (vitamin B6) 100 mg PO DAILY 90 days thiamine HCl (vitamin B1) 100 mg PO DAILY HPI Comments Details: Chepe is a 64-year-old male patient of Dr. Villatoro. He has a past medical history of heart murmur, hypertension, nicotine dependence, and alcohol dependency. He presents to the office today for follow-up of his elevated PSA, nephrolithiasis, and history of gross hematuria. In discussion with the patient today reports to be doing and feeling well. He reports having had no bothersome urinary issues since his last office visit here. He discusses having gone to [facility] for his longstanding history of alcohol dependency. He reports that although he has not been sober he has significantly decreased his alcohol consumption. Recent PSA results were reviewed with the patient today as noted and trended below: 10/26 6.6, 01/23 7.2, 03/25 4.0, 07/26 4.2, 11/24 3.6 We discussed potential causes of elevated PSA/labile PSA. Of note, patient with a history of gross hematuria and has underwent imaging as well as in office cystoscopy 02/23 noting no abnormal findings. He does have a longstanding history of nicotine dependence and continues to smoke. Previous retroperitoneal ultrasound notes 07/26 bilateral kidneys are normal in size, contour, and echogenicity. Right kidney with no lesions, calculi, and or hydronephrosis. Left kidney with 6 mm echogenic focus consistent with nonobstructing calculus seen on prior CT. The bladder is well distended and normal. Bladder ureteral jets are demonstrated. Pre void bladder volume is a proximally 400 mL. Postvoid bladder volume is 50 mL. The prostate measures a proximally 30 mL. He continues to work on his alcohol dependence. He does continue to report a one pack per day smoking history of over 40 years. He denies any further episodes of gross hematuria and or bothersome urinary issues or concerns. He denies urinary urgency, incontinence, nocturia, dysuria, foul smelling urine, changes to urinary stream, flank pain, fever, and or chills. He is happy with his current voiding parameters. When asked he does report a family history of prostate cancer. He reports his dad was diagnosed with prostate cancer in his 80s. Urine cytology 01/23 Negative for high-grade urothelial carcinoma. He otherwise offers no other issues or concerns at this time. [facility] Medical History Heart murmur High blood pressure Social History Patient Tobacco Use Status: Current everyday Tobacco user Review of Systems Const All systems reviewed & are unremarkable except as noted in HPI and below Physical Exam Const General: cooperative, comfortable, no acute distress, well developed, alert and awake Nutritional Appearance: overweight Orientation/consciousness: patient oriented x3 Limitations: no limitations HEENT Head: Yes normal to inspection, Yes normocephalic and Yes atraumatic Ears: hearing grossly normal bilaterally Eyes General: appearance normal, both eyes and all related structures Neck Neck: Yes normal visual inspection and Yes trachea midline Chest Chest palpation & inspection: normal inspection of the chest Resp Effort & Inspection: normal respiratory effort and able to speak in complete sentences Cardio Rate: regular rate GI Inspection: Yes normal to inspection General: Yes no CVA tenderness Back/Spine/Pelvis Back: no CVA tenderness Skin General skin exam: no rashes or lesions noted Neuro General: patient oriented x3 Extrem General: Yes normal to inspection Psych Appearance: grossly normal and well kempt Mental Status: mental status grossly normal Speech and movement: Normal speech and movement present and Clear speech present Affect: normal affect Attitude: cooperative Thought process: Normal thought process present Thought content: Normal thought content present Insight: Fair insight present (Psych) Judgement: Fair judgement present (Psych) Results AMB Urinalysis, Automated UA Leukoctes 0 Radha/uL Last Edit by Immunetricsbridger Prieto on 12/17/24 15:54 UA Nitrite Last Edit by Qufenqimulu on 12/17/24 15:54 UA Urobilinogen 0.2 mg/dL Last Edit by Qufenqimulu on 12/17/24 15:54 UA Protein 0 mg/dL Last Edit by Filecoin on 12/17/24 15:54 UA pH 6.0 Last Edit by Filecoin on 12/17/24 15:54 UA Blood 25 Rito/uL Last Edit by Qufenqimulu on 12/17/24 15:54 UA Specific [place] 1.015 Last Edit by Qufenqimulu on 12/17/24 15:54 UA Ketone Last Edit by Qufenqimulu on 12/17/24 15:54 UA Bilirubin 0 mg/dL Last Edit by Filecoin on 12/17/24 15:54 UA Glucose 0 mg/dL Last Edit by Filecoin on 12/17/24 15:54 Results Reviewed Results Reviewed: Laboratory Last Values Urine pH (Auto) 6.0 12/17/24 15:52 Specific [place] (Auto) 1.015 12/17/24 15:52 Urine Protein (Auto) 0 mg/dL 12/17/24 15:52 Glucose (UA)(Auto) 0 mg/dL 12/17/24 15:52 Urine Blood (Auto) 25 Rito/uL 12/17/24 15:52 Urine Bilirubin (Auto) 0 mg/dL 12/17/24 15:52 Urine Urobilinogen (Auto) 0.2 mg/dL 12/17/24 15:52 Leukocyte Esterase (Auto) 0 Radha/uL 12/17/24 15:52 Assessment & Plan Assessment & Plan (1) Elevated PSA: Code(s): R97.20 - Elevated prostate specific antigen [PSA] Category: Medical (2) Nephrolithiasis: Code(s): N20.0 - Calculus of kidney Category: Medical (3) Family history of prostate cancer: Code(s): Z80.42 - Family history of malignant neoplasm of prostate Category: Medical Plan In office urinalysis results reviewed with the patient today; as noted above Recent PSA results reviewed with the patient today; as noted above. Patient currently denies any bothersome urinary issues. Reports be happy with current voiding parameters. We discussed at length potential causes of elevated PSA as well as further treatment options and risks and benefits of these treatment options. Discussed importance of adequate hydration relation to nephrolithiasis as well as overall health and well-being. We discussed importance of quitting/limiting nicotine dependence. Will continue with close surveillance monitoring. Will obtain PSA in 4 months Will obtain renal ultrasound 6 months Continue vitamin B6 as discussed and prescribed; refill provided. Follow-up in 6 months with PSA in imaging to be completed prior; or sooner with any issues, concerns, and or questions. Orders: Orders AMB Urinalysis Automated Today Z13.9 - Encounter for screening, unspecified PSA,Total (Free>4and<10) 4 Months R97.20 - Elevated prostate specific antigen [PSA], Z80.42 - Family history of malignant neoplasm of prostate US renal BI 6 Months N20.0 - Calculus of kidney Medications: Refilled pyridoxine (vitamin B6) 100 mg PO DAILY 90 days 90 tabs 3RF Patient Instructions: The patient had an opportunity to ask questions regarding the treatment plan. All questions were answered. Physical exam, labs, and imaging were discussed and reviewed in detail. As well as risks, benefits, and discussion of treatment choices. No major barriers to understanding were identified. The patient expressed understanding and agreement with the above treatment plan. The patient was made aware they should contact our office by phone for worsening of their current condition, the appearance of new symptoms, or with any questions or concerns. Compliance is encouraged with any medications and follow up testing that is ordered. It is a privilege to be allowed the opportunity to participate in? your urological care.? Again, if you have any questions or concerns If you have any questions or concerns please do not hesitate to contact me. The office is [phone]. This note is constructed using voice recognition software. While every effort has been made to ensure accuracy general laborer errors may have been included. Yours sincerely, AMBER Sheffield Coding Level of Care Code Est Pt Level 3 (80076) Complex EM visit Add On G2211 Diagnoses Elevated PSA R97.20 Nephrolithiasis N20.0 Family history of prostate cancer Z80.42
--- OUTSIDE RECORDS SUMMARY | 2024-12-17 16:35 | XMS_ITS | Continuity of Care Document ---
Author Name [facility] Organization [facility] Care Team Providers Care Promotions Coordinator Name Role Phone [facility] Unavailable Unavailable Problems Combined list of problems [...] housing and economic circumstances, unsp Active Diagnosis [place] Diagnosis: ICD-10-CM Z56.0 Unemployment, unspecified Active Diagnosis [facility] Immunizations Combined list of available immunizations from the Department of Defense and Veterans Affairs facilities. Immunization Series Date Given Administered By Site Reaction Lot Number CVX Code Drug Network Security Administrator Status Comments Source COVID-19 (MODERNA), MRNA, LNP-S, PF, 100 MCG/0.5 ML DOSE 2 2020 207 complet ed MOD; [id number]; 1 [facility] COVID-19 (MODERNA), MRNA, LNP-S, PF, 100 MCG/0.5 ML DOSE 1 2020 207 complet ed MOD; [id number]; [address] [facility] INFLUENZA, UNSPECIFIED FORMULATION 2019 88 complet ed [facility] [place] Encounters Combined list of: 1) Encounters from Department of Veterans Affairs facilities going backup to the last 18 months, not all VA inpatient encounters are included; 2) Encounters from the Department of Defense facilities going backup to 280 months. Location Location Details Encounter Type Encounter Number Reason For Visit Attending Provider ADM Date DC Date Status Disposition Source [facility] HC PRO PHONE CALL 5-10 MIN [id number] Diagnos is: ICD-10- CM Z59.9 Problem related to housing and economi c circums tances, unsp MABEL,GUILLERMO ANY J 07/09 [facility] CASE MANAGEMENT [id number] Diagnos is: ICD-10- CM Z59.89 Other problem s related to housing and economi c circums Lauren Campoverde USTAVO A 08/12 [facility] COMMUNITY/ WORK REINTEGRAT ION [id number] Diagnos is: ICD-10- CM Z56.0 Unemplo yment, unspeci fied ALIVIA WHITT NDA 08/20 [facility] Outpatient Encounter [id number] Lauren LAND USTAVO A 09/05 [facility] CASE MANAGEMENT [id number] Diagnos is: ICD-10- CM Z59.89 Other problem s related to housing and economi c Lauren Cohen USTAVO A 09/10 [facility] HC PRO PHONE CALL 11-20 MIN [id number] Diagnos is: ICD-10- CM Z59.89 Other problem s related to housing and economi c Lauren Cohen USTAVO A 09/26 [facility] Outpatient Encounter [id number] 10/02 [facility] Encounter [id number] 10/03 [facility] HC PRO PHONE CALL 5-10 MIN [id number] Diagnos is: ICD-10- CM Z59.9 Problem related to housing and economi c circums tances, unsp BEARDEN BERNAURELIANO,G USTAVO A 10/16 [facility] HC PRO PHONE CALL 5-10 MIN [id number] Diagnos is: ICD-10- CM Z59.9 Problem related to housing and economi c circums tances, unsp BEARDENTrey MELENDREZG USTAVO A 11/14 [facility] CASE MANAGEMENT [id number] Diagnos is: ICD-10- CM Z59.9 Problem related to housing and economi c circums tances, unsp BEARDENTrey MELENDREZG USTAVO A 02/11 [facility] Out[facility] Encounter [id number] 02/28 [facility] [place] SELF-HELP/ PEER SVC PER 15MIN [id number] Diagnos is: ICD-10- CM Z59.9 Problem related to housing and economi c circums tances, unsp LASHAE MATSONIS AMANDO L 03/02 [place] [facility] CASE MANAGEMENT [id number] Diagnos is: ICD-10- CM Z59.89 Other problem s related to housing and economi c circums tances BEARDENTrey MELENDREZG USTAVO A 04/21 [facility] [place] [place] [facility] [place] [facility] Outpatient Encounter [id number] 06/17 [place] [facility] [place] [facility] Social History Combined list of available smoking, tobacco, and other social history from Department of Defense and Veterans Affairs facilities. Social History Type Response Date Comment [facility] e Tobacco smoking status [facility] [place] US[place] EVERY DAY 10/06/[address] [place] [facility] [place] [facility] History of tobacco use IN-TOBACCO USE WI 30 MIN OF WAKEUP 10/06/[address] [place] [facility] [place] [facility]
--- OUTSIDE RECORDS SUMMARY | 2024-12-17 16:35 | XMS_ITS | Data Portability ---
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 Role Phone JASMIN MIRELES Primary Care [...] Gastroeso phageal reflux disease without esophagit is [id number] Active 2022 Gastro-es ophageal reflux disease without esophagit is; Note: Date Diagnosed : 3 8:32 AM (K21.9) Not Available [facility] 4 03:14:08 Neck pain 96473794 Active 2022 Cervicalg ia; Note: Date Diagnosed : 07/05/2023 11:52 AM (M54.2) Not Available [facility] 4 03:14:09 Tobacco dependenc e caused by cigarette s [id number] 007562 Active 2022 Nicotine dependenc e, cigarette s, uncomplic ated; Note: Date Diagnosed : 07/05/2023 11:52 AM (F17.210) Not Available [facility] 4 03:14:09 Mass of neck 876306784 Active 2022 Localized swelling, mass and lump, neck; Note: Date Diagnosed : 07/05/2023 12:01 PM (R22.1) Not Available [facility] 4 03:14:08 Neck swelling 515653070 Active 2022 Localized swelling, mass and lump, neck; Note: Date Diagnosed : 07/05/2023 12:01 PM (R22.1) Not Available [facility] 4 03:14:08 Bilateral tinnitus 52394081880 02 Active 2023 PARAG CASTILLO, AUD [address] [facility],[place] [address], [place], [address] , [facility] - [facility] 4 13:44:34 Sensorine ural hearing loss of bilateral ears 553660605 Active 2023 PARAG CASTILLO AUD [address] [facility],[place] [address], [place], [address] , [facility] - [facility] 4 13:44:42 Notes:Alcohol dependence, un complicated Note: Date Diagnosed: 07/05/2023 11:52 AM (F10.20) Note: Date Diagnosed: 07/05/2023 11:52 AM (F10.20) Problem Notes None recorded. Procedures Surgical History Date Name Laterality Status Provider Name and Address Organization Details Recorded Time 02/13/2024 Comp Audio with Tymps (03643 & 37889) completed PARAG CASTILLO AUD [address] [facility],[place] [facility], [place], [address], [facility] - [facility] 02/13/2024 13:44:26 Imaging Results Imaging Date Name [...] mg tablet 02/12 completed Medicati on ID: [id number] B rand Name: quetiapi ne Send Method: E-Prescr ibed Sub s Allowed: subs OK Medic ationGen ericName : quetiapi ne Medic ation ID: [id number] B rand Name: quetiapi ne Send Method: [...] mg tablet 02/12 completed Medicati on ID: [id number] B rand Name: clonidin e HCl Send Method: E-Prescr ibed Sub s Allowed: subs OK Medic ationGen ericName : clonidin e HCl [facility] cation ID: [id number] B rand Name: clonidin e HCl Send Method: E-Prescr ibed Sub s Allowed: subs OK Medic ationGen ericName : clonidin e HCl Not Available Not Available Not Available atorvasta tin 20 mg tablet TAKE 1 TABLET BY MOUTH EVERYDAY AT BEDTIME 02/12 completed Not Available Not Available Not Available nicotine 14 mg/24 hr daily transderm al patch 02/12 completed Medicati on ID: [id number] B rand Name: nicotine Send Method: E-Prescr ibed Sub s Allowed: subs OK Medic ationGen ericName : nicotine Medicat ion ID: [id number] B rand Name: nicotine Send Method: E-Prescr ibed Sub s Allowed: subs OK Medic ationGen ericName : nicotine Not Available Not Available Not Available metoprolo l succinate ER 50 mg tablet,ex tended release 24 hr active Medicati on ID: [id number] B rand Name: metoprol ol succinat e [...] mg tablet 02/12 completed Medicati on ID: [id number] B rand Name: naltrexo ne Send Method: E-Prescr ibed Sub s Allowed: subs OK Medic ationGen ericName : naltrexo ne Medic ation ID: [id number] B rand Name: naltrexo ne Send Method: E-Prescr ibed Sub s Allowed: subs OK Medic ationGen ericName : naltrexo ne Not Available Not Available Not Available metoprolo l succinate ER 100 mg tablet,ex tended release 24 hr TAKE 1 TABLET BY MOUTH EVERY DAY active Not Available Not Available No t Available folic acid 400 mcg tablet active Medicati on ID: [id number] B rand Name: folic acid Sen d Method: E-Prescr ibed Sub s Allowed: subs OK Medic ationGen ericName : folic acid Not Available Not Available Not Available polymyxin B sulfate 10,000 unit-trim ethoprim 1 mg/mL eye drops 02/12 completed Medicati on ID: [id number] B rand Name: polymyxi n B sulf-tri methopri m Send Method: E-Prescr ibed Sub s Allowed: subs OK Medic ationGen ericName : polymyxi n B sulf-tri methopri m Medica tion ID: [id number] B rand Name: polymyxi n B sulf-tri [...] % topical cream active Medicati on ID: [id number] B rand Name: hydrocor tisone S end Method: E-Prescr ibed Sub s Allowed: subs OK Medic ationGen ericName : hydrocor tisone Not Available Not Available Not Available hydroxyzi ne HCl 25 mg tablet active Medicati on ID: [id number] B rand Name: hydroxyz ine HCl Send Method: E-Prescr ibed Sub s Allowed: subs OK Medic ationGen ericName : hydroxyz ine HCl Not Available Not Available Not Available bisacodyl 5 mg tablet,de layed release 02/12 completed Medicati on ID: [id number] B rand Name: bisacody l Send Method: E-Prescr ibed Sub s Allowed: subs OK Medic ationGen ericName : bisacody l Medica tion ID: [id number] B rand Name: bisacody l Send Method: E-Prescr ibed Sub s Allowed: subs OK Medic ationGen ericName : bisacody l Not Available Not Available Not Available metoprolo l succinate ER 25 mg tablet,ex tended release 24 hr active Medicati on ID: [id number] B rand Name: metoprol ol succinat e Send Method: E-Prescr ibed Sub s Allowed: subs OK Medic ationGen ericName : metoprol ol succinat e Not Available Not Available Not Available propranol ol 20 mg tablet 02/12 completed Medicati on ID: [id number] B rand Name: proprano lol Send Method: E-Prescr ibed Sub s Allowed: subs OK Medic ationGen ericName : proprano lol Medi cation ID: [id number] B rand Name: proprano lol Send Method: E-Prescr ibed Sub s Allowed: subs OK Medic ationGen ericName : proprano lol Not Available Not Available Not Available Vitamin B-1 100 mg tablet active Medicati on ID: [id number] B rand Name: Vitamin B-1 Send Method: E-Prescr ibed Sub s Allowed: subs OK Medic ationGen ericName : Vitamin B-1 Not Available Not Available Not Available hydroxyzi ne HCl 10 mg tablet 02/12 completed Medicati on ID: [id number] B rand Name: hydroxyz ine HCl Send Method: E-Prescr ibed Sub s Allowed: subs OK Medic ationGen ericName : hydroxyz ine HCl Medi cation ID: [id number] B rand Name: hydroxyz ine HCl Send Method: E-Prescr ibed Sub s Allowed: subs OK Medic ationGen ericName : hydroxyz ine HCl Not Available Not Available Not Available losartan 100 mg tablet active Medicati on ID: [id number] B rand Name: losartan Send Method: E-Prescr ibed Sub s Allowed: subs OK Medic ationGen ericName : losartan Not Available Not Available Not Available sertralin e 50 mg tablet 02/12 completed Medicati on ID: [id number] B rand Name: sertrali ne Send Method: E-Prescr ibed Sub s Allowed: subs OK Medic ationGen ericName : sertrali ne Medic ation ID: [id number] B rand Name: sertrali ne Send Method: E-Prescr ibed Sub s Allowed: subs OK Medic ationGen ericName : sertrali ne Not Available Not Available Not Available naproxen 500 mg tablet 02/12 completed Medicati on ID: [id number] B rand Name: naproxen Send Method: E-Prescr ibed Sub s Allowed: subs OK Medic ationGen ericName : naproxen Medicat ion ID: [id number] B rand Name: naproxen Send Method: E-Prescr ibed Sub s Allowed: subs OK Medic ationGen ericName : naproxen Not Available Not Available Not Available cyclobenz aprine 5 mg tablet active Medicati on ID: [id number] B rand Name: cycloben zaprine Send Method: E-Prescr ibed Sub s Allowed: subs OK Medic ationGen ericName : cycloben zaprine Not Available Not Available Not Available acamprosa te 333 mg tablet,de layed release 02/12 completed Medicati on ID: [id number] B rand Name: acampros ate Send Method: E-Prescr ibed Sub s Allowed: subs OK Medic ationGen ericName : acampros ate Medi cation ID: [id number] B rand Name: acampros ate Send Method: E-Prescr ibed Sub s Allowed: subs OK Medic ationGen ericName : acampros ate Not Available Not Available Not Available Gas Relief Extra Strength 125 mg chewable tablet active Medicati on ID: [id number] B rand Name: Gas Relief Extra Strength Send Method: E-Prescr ibed Sub s Allowed: subs OK Medic ationGen ericName : Gas Relief Extra Strength Not Available Not Available Not Available melatonin 5 mg tablet TAKE 1 TABLET BY MOUTH EVERYDAY AT BEDTIME active Not Available Not Available No t Available Purelax 17 gram/dose oral powder 02/12 completed Medicati on ID: [id number] B rand Name: Purelax Send Method: E-Prescr ibed Sub s Allowed: subs OK Medic ationGen ericName : Purelax Medicati on ID: [id number] B rand Name: Purelax Send Method: E-Prescr ibed Sub s Allowed: subs OK Medic ationGen ericName : Purelax Not Available Not Available Not Available Vitals Date Recorded Body height Body mass index (BMI) Body weight Provider Name and Address Organization Details Last Updated DateTime 02/13/2024 182.88 cm 31.2 kg/m2 917084.25 g Kanwal Jones [place] [facility] 02/13/2024 13:31:21 Social History None recorded. Functional Status None recorded. Mental Status None recorded. Family History Nothing Reported. Medical History No medical history recorded. Past Encounters Encounter ID Performer Location Encounter Start Date Encounter Closed Date Diagnosis/Indication Diagnosis SNOMED-CT Code Diagnosis ICD10 Code Diagnosis Note [id number] CARLOS BARRAGAN MD [facility] on [address] [place] [address] 02/13/2024 13:21:07 02/13/2024 14:59:06 Bilateral tinnitus 2986484329 102 H93.13 63-year-ol d male presents with tinnitus after being exposed to a high-frequ ency alarm for 2 weeks. It has since diminished . We reviewed his audiogram which shows a moderate high-frequ ency loss. I counseled him that the tinnitus is related to the hearing loss and down can be a trigger. I recommende d decreasing caffeine. I counseled him that there is no medical or surgical interventi on to resolve the tinnitus, but tinnitus retraining therapy or sound retraining therapy can help with tolerance. I did recommend repeat audiogram in about a year. All questions answered. Right Ear:Normal hearing sloping to a moderate SNHL with excellent speech discrimina tion.Type A tympanogra m.Left Ear:Normal hearing sloping to a moderate SNHL with excellent speech discrimina tion.Type A tympanogra m. Sensorineu ral hearing loss of bilateral ears [id number] H90.3 Health Concerns Section Related Observation LastModified by Organization Detai ls LastModified Time None Recorded Concern Status LastModified by Organization Details LastModified Time None Recorded Advance Directives Directive None Recorded Payers Encounter Date Sequence Insurance Name Policy Number Policy Underwood Covered Member ID Underwood Member ID Guarantor Name 02/13/2024 1 [facility] HEALTH NET PLAN (MEDICAID HMO) [id number] Chepe Lopez [id number] Chepe Lopez Notes Date Note Type Note Provider Name and Address Organization Details Recorded Time 02/13/2024 text/html 63-year-old male presents today for tinnitus after being exposed to an alarm for 2 weeks. This was in August and September. He still notices it but it is less bothersome. He does have a history of noise exposure at concerts. CARLOS BARRAGAN MD [address] [place] [address], [place], [address], [facility] - [facility] 02/14/2024 09:53:49
== END 2024-12-17 14:24 | disposition home or self-care (01) ==
PROVIDERS: PCP Internal Medicine; Visit Provider Nurse Practitioner Family
DX: Z13.9 Encounter for screening, unspecified (principal)

== ENCOUNTER → 2024-12-17 13:32 | Outpatient (BNVA) | payer MEDICARE, OTHER, SELFPAY | PROVIDERS: PCP Internal Medicine; Visit Provider Nurse Practitioner Family | DX: R97.20 Elevated prostate specific antigen [PSA] (principal); N20.0 Calculus of kidney; I10 Essential (primary) hypertension; Z80.42 Family history of malignant neoplasm of prostate | CPT/HCPCS: 81003; 99212 ==